=== PATIENT | female | born 1970 | race Caucasian/White ===

== ENCOUNTER 2016-10-07 10:01 | Emergency (ER) | payer MEDICARE ==
[2016-10-07] MEDS ORDERED: SODIUM CHLORIDE 0.9% 1,000 ML IV STA ×3 (13:12→14:54)
[2016-10-07] MEDS ORDERED: ONDANSETRON 4 MG/2 ML VIAL IVP STA ×2 (13:12→14:54)
[2016-10-07] MEDS ORDERED: HYDROmorphone 1 MG/ML 1 ML SYRINGE IVP STA (13:12)
--- NOTE | 2016-10-07 13:24 | ED ---
General Adult HPI - General Chief complaint: Abdominal Pain Stated complaint: ABDOMINAL PAIN Time Seen by Provider: 10/07/16 13:07 Source: patient, RN notes reviewed Mode of arrival: ambulatory Limitations: physical limitation - History of Present Illness Initial comments: Patient is a 45-year-old female who presents emergency room today with a chief complaint of increased abdominal pain over the last 5 days. Does admit to symptoms of nausea vomiting. She states that she did have some diarrhea today. Denies any signs of blood. Does admit that the pain reminds her of the pain returns that she's had once in the past. Patient states was due to a cyst. Describes abdominal pain as "burning". Currently rates it a 03/02. She currently denies any other complaints or symptoms at this time. - Related Data Home Medications Medication Instructions Recorded Confirmed Cholecalciferol [Vitamin D3] 2,000 unit PO DAILY 10/07/16 10/07/16 Previous Rx's Medication Instructions Recorded Dicyclomine [Bentyl] 20 mg PO QID #20 tablet 10/07/16 Ondansetron Odt [Zofran ODT] 4 mg PO Q8HR PRN #20 tab 10/07/16 Allergies Allergy/AdvReac Type Severity Reaction Status Date / Time levofloxacin [From Levaquin] Allergy Unknown Verified 10/07/16 13:06 progesterone Allergy loss of Verified 10/07/16 13:06 vision sulfamethoxazole Allergy Rash/Hives Verified 10/07/16 13:06 [From Bactrim] trimethoprim [From Bactrim] Allergy Rash/Hives Verified 10/07/16 13:06 lorazepam [From Ativan] AdvReac Hallucinati Verified 10/07/16 13:06 ons Review of Systems ROS Statement: Those systems with pertinent positive or pertinent negative responses have been documented in the HPI. ROS Other: All systems not noted in ROS Statement are negative. 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, liver disease, peripheral neuropathy, blindness, optic nerve neuropathy History of Any Multi-Drug Resistant Organisms: None Reported Past Surgical History: Tubal Ligation Additional Past Surgical History / Comment(s): pancreatitis, h pylori, optic nerve neuropathy, blindness Past Anesthesia/Blood Transfusion Reactions: Motion Sickness Past Psychological History: No Psychological Hx Reported Smoking Status: Former smoker Past Alcohol Use History: Occasional Past Drug Use History: None Reported - Past Family History Mother Family Medical History: Hypertension General Exam - General Exam Comments Initial Comments: General: The patient is awake and alert, in no distress, and does not appear acutely ill. Eye: Pupils are equal, round and reactive to light, extra-ocular movements are intact. No nystagmus. There is normal conjunctiva bilaterally. No signs of icterus. Ears, nose, mouth and throat: There are moist mucous membranes and no oral lesions. Neck: The neck is supple, there is no tenderness or JVD. Cardiovascular: There is a regular rate and rhythm. No murmur, rub or gallop is appreciated. Respiratory: Lungs are clear to auscultation, respirations are non-labored, breath sounds are equal. No wheezes, stridor, rales, or rhonchi. Gastrointestinal: Normal appearance of the abdomen. Normal bowel sounds. Abdomen soft on palpation. Patient does have tenderness mildly throughout the abdomen. No rebound tenderness. No guarding. No CVA tenderness. Musculoskeletal: Normal ROM, no tenderness. Strength 5/5. Sensation intact. Pulses equal bilaterally 2+. Neurological: A&O x 3. CN II-XII intact, There are no obvious motor or sensory deficits. Coordination appears grossly intact. Speech is normal. Skin: Skin is warm and dry and no rashes or lesions are noted. Psychiatric: Cooperative, appropriate mood & affect, normal judgment. Limitations: physical limitation Course Vital Signs 10/07/16 10/07/16 10:11 15:04 Temperature 99.0 F Pulse Rate 100 78 Respiratory 20 16 Rate Blood Pressure 154/90 131/70 O2 Sat by Pulse 99 100 Oximetry Medical Decision Making - Medical Decision Making 45-year-old female presents to emergency room for nausea, vomiting, diarrhea 5 days. She doesn't have initial mild diffuse abdominal pain throughout abdomen. Patient reexamined at this time shows no sign of distress. Feeling better after medications. Patient's CT of the abdomen and pelvis negative for any acute abnormalities. Patient's labs reviewed and elevated white count. Negative lactic acid. Patient will be discharged home advised follow-up the family doctor in the next 2 days. She is advised return to emergency room symptoms increase worsen. She'll be continued on Zofran and Bentyl at home. Advised return for any other concerns. She states understanding and is in agreement. - Lab Data Result diagrams: 10/07/16 13:10 10/07/16 13:10 Lab Results 10/07/16 10/07/16 10/07/16 Range/Units 13:00 13:00 13:10 WBC (3.8-10.6) k/uL RBC (3.80-5.40) m/uL Hgb (11.4-16.0) gm/dL Hct (34.0-46.0) % MCV (80.0-100.0) fL MCH (25.0-35.0) pg MCHC (31.0-37.0) g/dL RDW (11.5-15.5) % Plt Count (150-450) k/uL Neutrophils % % Lymphocytes % % Monocytes % % Eosinophils % % Basophils % % Neutrophils # (1.3-7.7) k/uL Lymphocytes # (1.0-4.8) k/uL Monocytes # (0-1.0) k/uL Eosinophils # (0-0.7) k/uL Basophils # (0-0.2) k/uL Sodium 143 (137-145) mmol/L Potassium 3.6 (3.5-5.1) mmol/L Chloride 103 (98-107) mmol/L Carbon Dioxide 23 (22-30) mmol/L Anion Gap 17 mmol/L BUN 12 (7-17) mg/dL Creatinine 0.60 (0.52-1.04) mg/dL Est GFR (MDRD) Af Amer >60 (>60 ml/min/1.73 sqM) Est GFR (MDRD) Non-Af >60 (>60 ml/min/1.73 sqM) Glucose 107 H (74-99) mg/dL Plasma Lactic Acid Frank (0.7-2.0) mmol/L Calcium 10.0 (8.4-10.2) mg/dL Total Bilirubin 0.9 (0.2-1.3) mg/dL AST 68 H (14-36) U/L ALT 72 H (9-52) U/L Alkaline Phosphatase 53 (38-126) U/L Total Protein 8.1 (6.3-8.2) g/dL Albumin 4.9 (3.5-5.0) g/dL Amylase 72 (30-110) U/L Lipase 40 (23-300) U/L Urine Color Yellow Urine Appearance Cloudy H (Clear) Urine pH 5.5 (5.0-8.0) Ur Specific [place] 1.025 (1.001-1.035) Urine Protein Trace H (Negative) Urine Glucose (UA) Negative (Negative) Urine Ketones 3+ H (Negative) Urine Blood Negative (Negative) Urine Nitrite Negative (Negative) Urine Bilirubin 1+ H (Negative) Urine Urobilinogen 2.0 (<2.0) mg/dL Ur Leukocyte Esterase Negative (Negative) Urine WBC 1 (0-5) /hpf Ur Squamous Epith Cells 5 H (0-4) /hpf Amorphous Sediment Rare H (None) /hpf Urine Mucus Many H (None) /hpf Urine HCG, Qual Not Detected (Not Detectd) 10/07/16 10/07/16 Range/Units 13:10 13:30 WBC 10.5 (3.8-10.6) k/uL RBC 4.55 (3.80-5.40) m/uL Hgb 13.7 (11.4-16.0) gm/dL Hct 40.9 (34.0-46.0) % MCV 89.8 (80.0-100.0) fL MCH 30.2 (25.0-35.0) pg MCHC 33.6 (31.0-37.0) g/dL RDW 15.1 (11.5-15.5) % Plt Count 199 (150-450) k/uL Neutrophils % 80 % Lymphocytes % 14 % Monocytes % 4 % Eosinophils % 1 % Basophils % 0 % Neutrophils # 8.4 H (1.3-7.7) k/uL Lymphocytes # 1.5 (1.0-4.8) k/uL Monocytes # 0.4 (0-1.0) k/uL Eosinophils # 0.1 (0-0.7) k/uL Basophils # 0.0 (0-0.2) k/uL Sodium (137-145) mmol/L Potassium (3.5-5.1) mmol/L Chloride (98-107) mmol/L Carbon Dioxide (22-30) mmol/L Anion Gap mmol/L BUN (7-17) mg/dL Creatinine (0.52-1.04) mg/dL Est GFR (MDRD) Af Amer (>60 ml/min/1.73 sqM) Est GFR (MDRD) Non-Af (>60 ml/min/1.73 sqM) Glucose (74-99) mg/dL Plasma Lactic Acid Frank 1.1 (0.7-2.0) mmol/L Calcium (8.4-10.2) mg/dL Total Bilirubin (0.2-1.3) mg/dL AST (14-36) U/L ALT (9-52) U/L Alkaline Phosphatase (38-126) U/L Total Protein (6.3-8.2) g/dL Albumin (3.5-5.0) g/dL Amylase (30-110) U/L Lipase (23-300) U/L Urine Color Urine Appearance (Clear) Urine pH (5.0-8.0) Ur Specific [place] (1.001-1.035) Urine Protein (Negative) Urine Glucose (UA) (Negative) Urine Ketones (Negative) Urine Blood (Negative) Urine Nitrite (Negative) Urine Bilirubin (Negative) Urine Urobilinogen (<2.0) mg/dL Ur Leukocyte Esterase (Negative) Urine WBC (0-5) /hpf Ur Squamous Epith Cells (0-4) /hpf Amorphous Sediment (None) /hpf Urine Mucus (None) /hpf Urine HCG, Qual (Not Detectd) Disposition Clinical Impression: Nausea vomiting and diarrhea Disposition: HOME SELF-CARE Condition: Good Instructions: Abdominal Pain (ED) Additional Instructions: Please use medication as discussed. Please follow-up with family doctor in the next 2 days of symptoms have not improved. Please return to emergency room if the symptoms increase or worsen or for any other concerns. Prescriptions: Dicyclomine [Bentyl] 20 mg PO QID #20 tablet Ondansetron Odt [Zofran ODT] 4 mg PO Q8HR PRN #20 tab PRN Reason: Nausea Referrals: David Collins DO [Primary Care Provider] - 1-2 days Time of Disposition: 15:24
[2016-10-07 13:26] LABS: Basophils % (A) 0 %; CH 29.6; CHCM 33.1; Eosinophils # (A) 0.1 k/uL (0-0.7); Eosinophils % (A) 1 %; HCT 40.9 % (34.0-46.0); HGB 13.7 gm/dL (11.4-16.0); Luc # (Auto) 0.19; Luc % (Auto) 2; Lymphocytes # (A) 1.5 k/uL (1.0-4.8); Lymphocytes % (A) 14 %; MCH 30.2 pg (25.0-35.0); MCHC 33.6 g/dL (31.0-37.0); MCV 89.8 fL (80.0-100.0); Mean Platelet Volume 7.5; Monocytes # (A) 0.4 k/uL (0-1.0); Monocytes % (A) 4 %; Neutrophils # (A) 8.4 k/uL (1.3-7.7); Neutrophils % (A) 80 %; RBC 4.55 m/uL (3.80-5.40); RDW 15.1 % (11.5-15.5); WBC 10.5 k/uL (3.8-10.6); WBC (Perox) 10.94
[2016-10-07 13:32] LABS: Amorphous Sediment,Urine Rare /hpf; Appearance,Urine Cloudy (Clear); Bilirubin,Urine 1+ (Negative); Glucose,Urine (UA) Negative (Negative); Ketones,Urine 3+ (Negative); Leukocyte Esterase,Urine Negative (Negative); Mucus,Urine Many /hpf; Nitrite,Urine Negative (Negative); PH, Urine 5.5 (5.0-8.0); Particle Count 17880; Protein,Urine Trace (Negative); Specific Gravity,Urine 1.025 (1.001-1.035); Squamous Epithelial Cell,Urine 5 /hpf (0-4); UA Billing (MACRO vs. MICRO) MICRO; WBC,Urine 1 /hpf (0-5)
[2016-10-07 13:43] LABS: ALT 72 U/L (9-52); AST 68 U/L (14-36); Alkaline Phosphatase 53 U/L (38-126); Amylase 72 U/L (30-110); Anion Gap 17 mmol/L; Blood Urea Nitrogen 12 mg/dL (7-17); Carbon Dioxide 23 mmol/L (22-30); Chloride 103 mmol/L (98-107); Glucose 107 mg/dL (74-99); Non-African American GFR(MDRD) >60 (>60 ml/min/1.73 sqM); Potassium 3.6 mmol/L (3.5-5.1); Sodium 143 mmol/L (137-145); Total Bilirubin 0.9 mg/dL (0.2-1.3); Total Protein 8.1 g/dL (6.3-8.2)
--- NOTE | 2016-10-07 13:49 | XR ---
EXAMINATION TYPE: XR KUB DATE OF EXAM: 10/07/2016 1:45 PM COMPARISON: NONE HISTORY: 03/15/2012 TECHNIQUE: One view abdominal series FINDINGS: The osseous structures are intact. The bowel gas pattern is nonspecific. Lung bases are clear. Calc ification pelvis is nonspecific but likely vascular. Stable from previous exam. Hypertrophic change o f the hips seen with femoral acetabular impingement. IMPRESSION: 1. Nonspecific abdomen.
[2016-10-07] MEDS ORDERED: RX INFO: IV CONTRAST WAS GIVEN 1 EACH MISC MISCELLANE PRN (13:56)
--- NOTE | 2016-10-07 14:47 | CT ---
EXAMINATION TYPE: CT abdomen pelvis w con DATE OF EXAM: 10/07/2016 2:34 PM COMPARISON: 08/28/2013 INDICATION: pain with vomiting DLP: 447.2 mGycm, Automated exposure control for dose reduction was used. CONTRAST: 100 mL of Omnipaque 300. Study performed with Oral Contrast TECHNIQUE: Axial images were obtained from above the diaphragm to the pubic rami in the axial plane a t 5 mm thick sections. Reconstructed images are reviewed on the computer in the coronal plane. FINDINGS: Limited CT sections are obtained the lung bases. The lung bases are clear. CT ABDOMEN: Liver: Normal Spleen: Normal Pancreas: Normal Adrenal glands: The adrenal glands are normal. Gallbladder: Normal Kidneys: No masses are evident. No hydronephrosis is present. There is a 0.5 cm right renal cortica l cyst. Delayed images were obtained through the kidneys, which remain unremarkable. Aorta: Normal Inferior vena cava: Normal. CT PELVIS: Loops of bowel within the abdomen and pelvis are normal. Study is without oral contrast limiting bowel evaluation. No dilated loops of bowel are evident. Stomach appears unremarkable. Appendix: Not visualized Urinary bladder: Decompressed with limited evaluation Genitourinary structures: Uterus appears normal. Adnexal regions appear within normal limits. A 1.1 c m cyst left ovary. Osseous structures: No suspicious lytic or sclerotic lesions. IMPRESSIONS: 1. Small right cortical renal cyst. 2. Unremarkable bowel
[2016-10-07] MEDS ORDERED: DICYCLOMINE 10 MG/ML 2 ML AMP IM STA (14:54)
[2016-10-07 15:05] VITALS: BP 131/70; RESP 16
[2016-10-07 15:36] VITALS: PULSE 70; TEMP 97.6
== END 2016-10-07 15:46 | disposition home or self-care (01) ==
LOC: EC 10:01
DX: R11.2 Nausea with vomiting, unspecified (principal); R19.7 Diarrhea, unspecified; Z88.1 Allergy status to other antibiotic agents; Z88.2 Allergy status to sulfonamides; Z88.8 Allergy status to other drugs, medicaments and biological substances; Z87.891 Personal history of nicotine dependence; Z79.899 Other long term (current) drug therapy
CPT/HCPCS: 99284; 96372; 96374; 96375; 96376; 96361 ×3; 36415; 80053; 82150; 83605; 83690; 85025; 81001; 81025; 74000; 74177; J0500; J2405; J1170; Q9967

== ENCOUNTER → 2017-04-09 | Outpatient (CLI) | payer MEDICARE ==
--- NOTE | 2017-04-09 15:01 | US ---
EXAMINATION TYPE: US pelvic complete DATE OF EXAM: 04/09/2017 COMPARISON: CT 2017 CLINICAL HISTORY: Pelvic PainR10.2. midline pelvic pain radiating laterally; TECHNIQUE: Transvaginal (TV) as patient chose TV US since bladder not prepped Date of LMP: 04/05/2017 EXAM MEASUREMENTS: Uterus: 7.6 x 5.2 x 4.0 cm Endometrial Stripe: 0.9 cm Right Ovary: 1.5 x 1.3 x 1.0 cm Left Ovary: 2.1 x 2.4 x 1.6 cm 1. Uterus: Retroverted; Multiple Nabothian Cysts in CX with largest = 0.9 x 0.5 x 0.9cm; heterogeneo us appearance to myometrium with hypoechoic, oval area (possible fibroid) noted mid myometrium near p eriphery and size = 1.5 x 0.9 x 0.9cm. 2. Endometrium: thickness may be wnl for Day 5 menstrual phase 3. Right Ovary: simple cyst is noted = 0.8 x 0.8 x 0.6cm 4. Left Ovary: simple cyst is noted = 1.2 x 1.2 x 0.8cm. Spectral, color and waveform doppler imaging shows good arterial and venous flow within the ovaries ; there is no evidence for ovarian torsion. 5. Bilateral Adnexa: wnl 6. Posterior cul-de-sac: wnl IMPRESSION: 1. Uterus is heterogeneous which is nonspecific. Occasionally BE seen with diffuse fibroid change. Th ere is a 1.5 cm hypoechoic nodule mid myometrium which likely represents a discrete fibroid. MRI coul d BE obtained as clinically warranted. 2. Simple cyst or dominant follicle bilateral ovary.
--- NOTE | 2017-04-12 08:36 | MM ---
Reason for exam: screening (asymptomatic). Last mammogram was performed 4 years and 2 months ago. Physical Findings: A clinical breast exam by your physician is recommended on an annual basis and results should be correlated with mammographic findings. MG Screening Mammo w CAD Bilateral CC and MLO view(s) were taken. Prior study comparison: January 31, 2013, bilateral digital screening mammo w/CAD. The breast tissue is extremely dense which could obscure a lesion on mammography. There is chronic nodularity bilaterally. No significant changes when compared with prior studies. ASSESSMENT: Benign, BI-RAD 2 RECOMMENDATION: Routine screening mammogram of both breasts in 1 year.
== END | disposition home or self-care (01) ==
LOC: RADMAMWWP 13:44
PROVIDERS: ATTEND Obstetrics & Gynecology
DX: Z12.31 Encounter for screening mammogram for malignant neoplasm of breast (principal); N83.201 Unspecified ovarian cyst, right side; N83.202 Unspecified ovarian cyst, left side
CPT/HCPCS: 76830; G0202

== ENCOUNTER 2018-07-02 10:02 | Emergency (ER) | payer MEDICARE ==
[2018-07-02 10:12] VITALS: RESP 18; TEMP 98.4
[2018-07-02] MEDS ORDERED: SODIUM CHLORIDE 0.9% 1,000 ML IV ONE (11:04)
[2018-07-02] MEDS ORDERED: MORPHINE SULFATE 4 MG/ML SYRINGE IVP STA (11:04)
[2018-07-02] MEDS ORDERED: KETOROLAC 30 MG/ML 1 ML VIAL IVP STA (11:04)
[2018-07-02] MEDS ORDERED: SODIUM CHLORIDE 0.9% 1,000 ML IV SCH (11:15)
--- NOTE | 2018-07-02 11:46 | ED ---
Abdominal Pain HPI - General Chief Complaint: Abdominal Pain Stated Complaint: Flank pain Time Seen by Provider: 07/02/18 10:14 Source: patient, RN notes reviewed, old records reviewed Mode of arrival: ambulatory Limitations: no limitations - History of Present Illness Initial Comments: 47-year-old female presents raise arthritic complaints of right-sided abdominal pain flank pain and bloating for 1 week. Patient states that she has numbness and tingling rating down her back to mid abdomen. She denies any falls or trauma. No vomiting. She does feel nauseated. Patient states that she does have pain radiates from her back down her legs. Patient states that she seems to be numb and tingly in these areas. Patient denies any saddle anesthesias. - Related Data Home Medications Medication Instructions Recorded Confirmed Ibuprofen [Motrin Ib] 400 mg PO Q6HR PRN 07/02/18 07/02/18 Previous Rx's Medication Instructions Recorded Cyclobenzaprine [Flexeril] 10 mg PO TID #12 tab 07/02/18 Ondansetron Odt [Zofran Odt] 4 mg PO Q8HR PRN #12 tab 07/02/18 Allergies Allergy/AdvReac Type Severity Reaction Status Date / Time levofloxacin [From Levaquin] Allergy Unknown Verified 07/02/18 10:53 progesterone Allergy loss of Verified 07/02/18 10:53 vision sulfamethoxazole Allergy Rash/Hives Verified 07/02/18 10:53 [From Bactrim] trimethoprim [From Bactrim] Allergy Rash/Hives Verified 07/02/18 10:53 lorazepam [From Ativan] AdvReac Hallucinati Verified 07/02/18 10:53 ons Review of Systems ROS Statement: Those systems with pertinent positive or pertinent negative responses have been documented in the HPI. ROS Other: All systems not noted in ROS Statement are negative. 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, liver disease, peripheral neuropathy, blindness, optic nerve neuropathy History of Any Multi-Drug Resistant Organisms: None Reported Past Surgical History: Tubal Ligation Additional Past Surgical History / Comment(s): pancreatitis, h pylori, optic nerve neuropathy, blindness Past Anesthesia/Blood Transfusion Reactions: Motion Sickness Past Psychological History: No Psychological Hx Reported Smoking Status: Former smoker Past Alcohol Use History: Occasional Past Drug Use History: None Reported - Past Family History Mother Family Medical History: Hypertension General Exam - General Exam Comments Initial Comments: Pleasant 47-year-old female. Alert and oriented 3. Patient appears in no significant distress. Limitations: no limitations General appearance: alert, in no apparent distress Head exam: Present: atraumatic, normocephalic, normal inspection Eye exam: Present: normal appearance, PERRL, EOMI. Absent: scleral icterus, conjunctival injection, periorbital swelling ENT exam: Present: normal exam, mucous membranes moist Neck exam: Present: normal inspection. Absent: tenderness, meningismus, lymphadenopathy Respiratory exam: Present: normal lung sounds bilaterally. Absent: respiratory distress, wheezes, rales, rhonchi, stridor Cardiovascular Exam: Present: regular rate, normal rhythm, normal heart sounds. Absent: systolic murmur, diastolic murmur, rubs, gallop, clicks GI/Abdominal exam: Present: soft, normal bowel sounds. Absent: distended, tenderness, guarding, rebound, rigid Extremities exam: Present: normal inspection, full ROM, normal capillary refill. Absent: tenderness, pedal edema, joint swelling, calf tenderness Back exam: Present: normal inspection, tenderness (Patient has tenderness to palpation of the lumbar spine.) Neurological exam: Present: alert, oriented X3, CN II-XII intact Psychiatric exam: Present: normal affect, normal mood Skin exam: Present: warm, dry, intact, normal color. Absent: rash Course Vital Signs 07/02/18 07/02/18 10:06 12:42 Temperature 98.4 F Pulse Rate 85 65 Respiratory 18 18 Rate Blood Pressure 136/90 134/89 O2 Sat by Pulse 98 100 Oximetry - Reevaluation(s) Reevaluation #1: 07/02/18 13:33 U pelvic exam on Patient she states that she's had follow-up with Dr. Gilman and prefers for Dr. Gilman to complete the pelvic exam. Medical Decision Making - Medical Decision Making 39-year-old female present to return today with complaints of abdominal fullness distention. She complains also of some back pain. Numbness and tingling A down her leg and across her abdomen. She has history of pancreatitis. She is a social drinker. No chronic alcohol abuse. She has no falls or trauma. Bowel sounds are normal. She did have some tenderness over the right lower quadrant. Abdomen seems somewhat full. Bowel sounds were normal. Initially concerned for any kind of ovarian mass leading to abdominal distention or ascites. Patient had lab work obtained he was given pain medication. Patient's lab work was unremarkable. There was some ketones within her urine from vomiting. Patient was given IV morphine. Computed tomography scan completed. Lumbar spine shows no significant abnormalities. I do believe the majority of patient's pain down her back in the paresthesias she is feeling is likely related to a pinched nerve. Patient's abdomen and pelvis CT did show some cervical thickening which could correlate to physical exam findings concerning for neoplasm. I did advise the Patient that she can't close follow-up with her [employer] Dr. Killian for further testing. Did offer pelvic exam she states she preferred to have Dr. Gavin for the full Pap smear. Patient does also have an ovarian cyst. Discussed close follow-up with PCP as well. Discharged with pulse relaxers and anti-inflammatory medication for the back. Discussed close return parameters. - Lab Data Result diagrams: 07/02/18 11:24 07/02/18 11:24 Lab Results 07/02/18 07/02/18 07/02/18 Range/Units 11:24 11:24 11:24 WBC 6.8 (3.8-10.6) k/uL RBC 4.11 (3.80-5.40) m/uL Hgb 12.4 (11.4-16.0) gm/dL Hct 38.9 (34.0-46.0) % MCV 94.8 (80.0-100.0) fL MCH 30.1 (25.0-35.0) pg MCHC 31.8 (31.0-37.0) g/dL RDW 14.8 (11.5-15.5) % Plt Count 233 (150-450) k/uL Neutrophils % 66 % Lymphocytes % 22 % Monocytes % 8 % Eosinophils % 2 % Basophils % 0 % Neutrophils # 4.5 (1.3-7.7) k/uL Lymphocytes # 1.5 (1.0-4.8) k/uL Monocytes # 0.6 (0-1.0) k/uL Eosinophils # 0.2 (0-0.7) k/uL Basophils # 0.0 (0-0.2) k/uL Sodium 139 (137-145) mmol/L Potassium 4.3 (3.5-5.1) mmol/L Chloride 105 (98-107) mmol/L Carbon Dioxide 25 (22-30) mmol/L Anion Gap 9 mmol/L BUN 15 (7-17) mg/dL Creatinine 0.53 (0.52-1.04) mg/dL Est GFR (CKD-EPI)AfAm >90 (>60 ml/min/1.73 sqM) Est GFR (CKD-EPI)NonAf >90 (>60 ml/min/1.73 sqM) Glucose 92 (74-99) mg/dL Calcium 9.2 (8.4-10.2) mg/dL Total Bilirubin 1.1 (0.2-1.3) mg/dL AST 24 (14-36) U/L ALT 29 (9-52) U/L Alkaline Phosphatase 43 (38-126) U/L Total Protein 7.0 (6.3-8.2) g/dL Albumin 4.1 (3.5-5.0) g/dL Amylase 59 (30-110) U/L Lipase 58 (23-300) U/L Urine Color Yellow Urine Appearance Clear (Clear) Urine pH 5.0 (5.0-8.0) Ur Specific [place] 1.024 (1.001-1.035) Urine Protein Negative (Negative) Urine Glucose (UA) Negative (Negative) Urine Ketones 2+ H (Negative) Urine Blood Negative (Negative) Urine Nitrite Negative (Negative) Urine Bilirubin Negative (Negative) Urine Urobilinogen <2.0 (<2.0) mg/dL Ur Leukocyte Esterase Negative (Negative) 07/02/18 13:31 EKG shows normal sinus rhythm possible left atrial enlargement. Borderline EKG. Ventricular rate of 67 bpm. Was 160 ms. QRS ration 86. QT QTc is 420/452 ms. - Radiology Data Radiology results: report reviewed Patient's motion within the mid and lower abdomen severely limiting the exam. Heterogeneous cervix that could be correlated with physical exam to exclude cervical neoplasm. Left ovarian cyst is seen measuring 3.1 cm. Sigmoid diverticulosis without evidence of dye acute diverticulitis. Appendix is not definitively seen however no real right lower quadrant fat stranding or changes are noted. There is evidence of hepatic steatosis. Disposition Clinical Impression: Back pain, Cervix abnormality, Left ovarian cyst Disposition: HOME SELF-CARE Condition: Good Instructions (If sedation given, give patient instructions): Cervical Cancer ( [place]) Additional Instructions: Patient has a close follow-up with primary care physician and Dr. Gilman. Patient should return to the emergency department if any alarming signs or symptoms occur. Prescriptions: Cyclobenzaprine [Flexeril] 10 mg PO TID #12 tab Ondansetron Odt [Zofran Odt] 4 mg PO Q8HR PRN #12 tab PRN Reason: Nausea Is patient prescribed a controlled substance at d/c from ED?: No Referrals: David Collins DO [Primary Care Provider] - 1-2 days Time of Disposition: 13:32
[2018-07-02 11:53] LABS: Appearance,Urine Clear (Clear); Basophils % (A) 0 %; Bilirubin,Urine Negative (Negative); Blood,Urine Negative (Negative); Color,Urine Yellow; Eosinophils # (A) 0.2 k/uL (0-0.7); Eosinophils % (A) 2 %; Glucose,Urine (UA) Negative (Negative); HCT 38.9 % (34.0-46.0); HGB 12.4 gm/dL (11.4-16.0); Ketones,Urine 2+ (Negative); Leukocyte Esterase,Urine Negative (Negative); Lymphocytes # (A) 1.5 k/uL (1.0-4.8); Lymphocytes % (A) 22 %; MCH 30.1 pg (25.0-35.0); MCHC 31.8 g/dL (31.0-37.0); MCV 94.8 fL (80.0-100.0); Mean Platelet Volume 6.7; Monocytes # (A) 0.6 k/uL (0-1.0); Monocytes % (A) 8 %; Neutrophils # (A) 4.5 k/uL (1.3-7.7); Neutrophils % (A) 66 %; Nitrite,Urine Negative (Negative); Platelet Count 233 k/uL (150-450); Protein,Urine Negative (Negative); RBC 4.11 m/uL (3.80-5.40); RDW 14.8 % (11.5-15.5); Specific Gravity,Urine 1.024 (1.001-1.035); Urobilinogen,Urine <2.0 mg/dL (<2.0); WBC 6.8 k/uL (3.8-10.6)
[2018-07-02 11:59] LABS: ALT 29 U/L (9-52); AST 24 U/L (14-36); Albumin 4.1 g/dL (3.5-5.0); Alkaline Phosphatase 43 U/L (38-126); Amylase 59 U/L (30-110); Anion Gap 9 mmol/L; Blood Urea Nitrogen 15 mg/dL (7-17); Calcium 9.2 mg/dL (8.4-10.2); Carbon Dioxide 25 mmol/L (22-30); Chloride 105 mmol/L (98-107); Glucose 92 mg/dL (74-99); Lipase 58 U/L (23-300); Potassium 4.3 mmol/L (3.5-5.1); Sodium 139 mmol/L (137-145); Total Bilirubin 1.1 mg/dL (0.2-1.3)
--- NOTE | 2018-07-02 12:45 | CT ---
EXAMINATION TYPE: CT abdomen pelvis w con DATE OF EXAM: 07/02/2018 HISTORY: Bloating, Rt sided pain CT DLP: 566.4mGycm Automated Exposure Control for Dose Reduction was Utilized. CONTRAST: CT scan of the abdomen and pelvis is performed with IV Contrast, patient injected with 100 mL of Isov ue 300. COMPARISON: 10/07/2016 FINDINGS: There is patient motion within the mid and lower abdomen severely limiting the exam. LUNG BASES: Minimal bibasilar subsegmental dependent atelectasis is noted. LIVER/GB: Hepatic parenchyma is diffusely hypoattenuated in comparison to that of the spleen, most co mmonly seen in hepatic steatosis. This finding limits evaluation for hepatic masses. More focal fatty infiltration is seen a geographic distribution near the falciform ligament. No gross evidence of hep atic mass is seen. No intrahepatic biliary ductal dilatation. No cholelithiasis. PANCREAS: No significant abnormality is seen. SPLEEN: No significant abnormality is seen. Splenule is noted adjacent to the kiana spleen. ADRENALS: No significant abnormality is seen. KIDNEYS: 2 small to accurately characterize subcentimeter right renal lesion is seen of the upper berry e anteriorly. BOWEL: No significant abnormality is seen. UTERUS/ADNEXA: The cervix appears enlarged and heterogenous. Left ovarian 3 cm cyst is noted. LYMPH NODES: No greater than 1cm abdominal or pelvic lymph nodes are appreciated. OSSEOUS STRUCTURES: Punctate probable bone island is seen of the L4 vertebral body, unchanged from th e prior exam. IMPRESSION: 1. PATIENT MOTION WITHIN THE MID AND LOWER ABDOMEN SEVERELY LIMITING THE EXAM. 2. HETEROGENOUS CERVIX THAT SHOULD BE CORRELATED WITH PHYSICAL EXAM TO EXCLUDE CERVICAL NEOPLASM. LEF T OVARIAN CYST IS SEEN MEASURING 3.1 CM. 2. SIGMOID DIVERTICULOSIS WITHOUT EVIDENCE OF ACUTE DIVERTICULITIS. 3. APPENDIX IS NOT DEFINITIVELY SEEN, HOWEVER NO RIGHT LOWER QUADRANT FAT STRANDING CHANGES ARE SEEN. WHAT IS THOUGHT TO REPRESENT THE APPENDIX IS WITHIN NORMAL LIMITS OF SIZE. 4. HEPATIC STEATOSIS.
[2018-07-02 14:14] VITALS: BP 129/97; PULSE 75
== END 2018-07-02 14:14 | disposition home or self-care (01) ==
LOC: EC 10:02
DX: N83.202 Unspecified ovarian cyst, left side (principal); N88.8 Other specified noninflammatory disorders of cervix uteri; R20.0 Anesthesia of skin; R20.2 Paresthesia of skin; Z86.73 Personal history of transient ischemic attack (TIA), and cerebral infarction without residual deficits; Z98.51 Tubal ligation status; Z87.19 Personal history of other diseases of the digestive system; Z87.891 Personal history of nicotine dependence; Z88.1 Allergy status to other antibiotic agents; Z79.890 Hormone replacement therapy; Z88.2 Allergy status to sulfonamides; Z88.8 Allergy status to other drugs, medicaments and biological substances
CPT/HCPCS: 99285; 96374; 96375; 96361 ×3; 36415; 93005; 80053; 82150; 83690; 85025; 81003; 74177; J2270; J1885; Q9967

== ENCOUNTER 2018-07-03 15:42 | Emergency (ER) | payer MEDICARE ==
[2018-07-03 15:48] VITALS: TEMP 98.3
[2018-07-03] MEDS ORDERED: SODIUM CHLORIDE 0.9% 1,000 ML IV STA (16:16)
[2018-07-03] MEDS ORDERED: diphenhydrAMINE 50 MG/ML 1 ML VIAL IVP STA (16:16)
[2018-07-03] MEDS ORDERED: FAMOTIDINE 20 MG/2 ML VIAL IV STA (16:16)
[2018-07-03] MEDS ORDERED: methylPREDNISolone SOD SUCCI 125 MG/2 ML VIAL IV STA (16:16)
[2018-07-03 16:17] VITALS: RESP 20
--- NOTE | 2018-07-03 16:21 | ED ---
Allergic Reaction HPI - General Chief complaint: Neuro Symptoms/Deficit Stated complaint: allergic reaction Time Seen by Provider: 07/03/18 16:02 Source: patient Mode of arrival: ambulatory Limitations: no limitations - History of Present Illness Initial Comments: Patient is a 47-year-old female presenting for ALLERGIC reaction type symptoms. She was seen here yesterday and given a prescription for muscle relaxers for back pain as well as abdominal discomfort. She took the medications around 1 AM and around 11 AM, she started having some itchy throat, tongue swelling, upper lip swelling states that she was having some numbness and tingling around her mouth. She denied any wheezing or shortness of breath and decided to come in after taking some Benadryl with only minimal relief. She denies any lower extremity weakness, numbness and tingling or arm weakness or paresthesias. - Related Data Home Medications Medication Instructions Recorded Confirmed Ibuprofen [Motrin Ib] 400 mg PO Q6HR PRN 07/02/18 07/03/18 Previous Rx's Medication Instructions Recorded EPINEPHrine [Epipen 2-Eduardo] 0.3 mg IM ONCE PRN #1 pack 07/03/18 Famotidine [Pepcid] 20 mg PO BID 5 Days #10 tablet 07/03/18 predniSONE 50 mg PO DAILY #4 tablet 07/03/18 Allergies Allergy/AdvReac Type Severity Reaction Status Date / Time cyclobenzaprine Allergy Anaphylaxis Verified 07/03/18 16:04 levofloxacin [From Levaquin] Allergy Unknown Verified 07/03/18 16:04 progesterone Allergy loss of Verified 07/03/18 16:04 vision sulfamethoxazole Allergy Rash/Hives Verified 07/03/18 16:04 [From Bactrim] trimethoprim [From Bactrim] Allergy Rash/Hives Verified 07/03/18 16:04 lorazepam [From Ativan] AdvReac Hallucinati Verified 07/03/18 16:04 ons Review of Systems ROS Statement: Those systems with pertinent positive or pertinent negative responses have been documented in the HPI. Constitutional: Negative for chills, fatigue and fever. HENT: Negative for congestion. Positive for upper lip swelling, tongue swelling and perioral numbness and tingling Respiratory: Negative for chest tightness, shortness of breath and wheezing. Negative for cough Cardiovascular: Negative for chest pain and palpitations. Gastrointestinal: Negative for abdominal pain. Negative for abdominal distention , diarrhea, nausea and vomiting. Genitourinary: Negative for dysuria. Musculoskeletal: Negative for back pain, neck pain and neck stiffness. Skin: Negative for color change. Neurological: Negative for dizziness, speech difficulty, weakness and positive for light-headedness. Psychiatric/Behavioral: Negative for agitation and confusion. Negative for anxiety ROS Other: All systems not noted in ROS Statement are negative. 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, liver disease, peripheral neuropathy, blindness, optic nerve neuropathy History of Any Multi-Drug Resistant Organisms: None Reported Past Surgical History: Tubal Ligation Additional Past Surgical History / Comment(s): pancreatitis, h pylori, optic nerve neuropathy, blindness Past Anesthesia/Blood Transfusion Reactions: Motion Sickness Past Psychological History: No Psychological Hx Reported Smoking Status: Former smoker Past Alcohol Use History: Occasional Past Drug Use History: None Reported - Past Family History Mother Family Medical History: Hypertension General Exam - General Exam Comments Initial Comments: Constitutional: Pt is oriented to person, place, and time. Pt appears well- developed and well-nourished. No distress. Head: Normocephalic and atraumatic. Mouth: Mild swelling of the upper lip. No tongue swelling, no paresthesias in the perioral region. Eyes: EOM are normal. Neck: Normal range of motion. Neck supple. Cardiovascular: Normal rate, regular rhythm, S1 normal, S2 normal and normal heart sounds. Exam reveals no gallop and no friction rub. No murmur heard. Pulmonary/Chest: Effort normal and breath sounds normal. No tachypnea and no bradypnea. No respiratory distress. No wheezes or rales noted. Abdominal: Soft. Bowel sounds are normal. Pt exhibits no shifting dullness, no distension, no pulsatile liver, no fluid wave, no abdominal bruit and no ascites. There is no tenderness. There is no rigidity, no rebound, no guarding, no tenderness at McBurney's point and negative Dailey's sign. Musculoskeletal: Normal range of motion. Neurological: Pt is alert and oriented to person, place, and time. No cranial nerve deficit. No ataxia of lower extremities. Unable to perform finger to nose test of the upper extremities as the patient is legally blind. No neurosensory deficits in any of the extremities. 5 out of 5 muscle strength in all extremities. No drift of the extremities present Skin: Skin is warm and dry. No rash noted. Pt is not diaphoretic. No erythema. No pallor. Psychiatric: Pt has a normal mood and affect. Pt behavior is normal. Thought content normal. Limitations: no limitations Course Vital Signs 07/03/18 07/03/18 07/03/18 15:46 15:56 16:00 Temperature 98.3 F Pulse Rate 93 88 Respiratory 18 20 Rate Blood Pressure 144/93 140/102 O2 Sat by Pulse 97 100 100 Oximetry 07/03/18 07/03/18 07/03/18 16:10 16:20 16:30 Temperature Pulse Rate 79 75 77 Respiratory 20 Rate Blood Pressure 140/102 127/88 127/88 O2 Sat by Pulse 100 Oximetry 07/03/18 07/03/18 07/03/18 16:40 16:50 17:00 Temperature Pulse Rate 75 73 73 Respiratory Rate Blood Pressure 122/85 124/97 124/97 O2 Sat by Pulse 100 100 100 Oximetry 07/03/18 07/03/18 07/03/18 17:10 17:20 17:30 Temperature Pulse Rate 71 66 62 Respiratory Rate Blood Pressure 119/90 127/83 127/83 O2 Sat by Pulse 100 100 100 Oximetry 07/03/18 07/03/18 07/03/18 17:40 17:50 18:00 Temperature Pulse Rate 64 68 64 Respiratory Rate Blood Pressure 122/91 122/86 122/86 O2 Sat by Pulse 100 100 100 Oximetry Medical Decision Making - Medical Decision Making Patient showed no evidence of neurologic dysfunction such as ataxia or lower extremity edema or paresthesias. Based on physical exam, this appears to be clearly secondary to ALLERGIC reaction. Pepcid, Benadryl, steroids were given and symptoms were mildly improved. Patient was given prescription for epinephrine as well as Pepcid and steroids to continue. Patient was advised follow-up with PCP in next 1-2 days and/or return to the emergency department if symptoms worsen. Epinephrine was not given here in the emergency department as patient had no throat closing, trouble swallowing or wheezing. - Lab Data Lab Results 07/03/18 Range/Units 16:05 POC Glucose (mg/dL) 93 (75-99) mg/dL POC Glu Financial Secretary ID Vonda Arriola Disposition Clinical Impression: Allergic reaction Disposition: HOME SELF-CARE Condition: Good Instructions (If sedation given, give patient instructions): Anaphylaxis (ED) Prescriptions: EPINEPHrine [Epipen 2-Eduardo] 0.3 mg IM ONCE PRN #1 pack PRN Reason: Anaphylaxis Famotidine [Pepcid] 20 mg PO BID 5 Days #10 tablet predniSONE 50 mg PO DAILY #4 tablet Is patient prescribed a controlled substance at d/c from ED?: No Referrals: David Collins DO [Primary Care Provider] - 1-2 days Time of Disposition: 17:49
[2018-07-03 16:29] LABS: Glucose,Whole Blood 93 mg/dL (75-99)
[2018-07-03 18:10] VITALS: BP 122/86; PULSE 64
== END 2018-07-03 18:10 | disposition home or self-care (01) ==
LOC: EC 15:42
DX: T78.40XA Allergy, unspecified, initial encounter (principal); R20.2 Paresthesia of skin; Z86.73 Personal history of transient ischemic attack (TIA), and cerebral infarction without residual deficits; Z87.891 Personal history of nicotine dependence; Z88.1 Allergy status to other antibiotic agents; Z88.2 Allergy status to sulfonamides; Z88.8 Allergy status to other drugs, medicaments and biological substances
CPT/HCPCS: 36415; 99283; 96374; 96375 ×2; 96361 ×2; J1200; J2930

== ENCOUNTER → 2018-10-18 | Outpatient (CLI) | payer MEDICARE ==
--- NOTE | 2018-10-18 16:04 | US ---
EXAMINATION TYPE: US pelvis complete transvag DATE OF EXAM: 10/18/2018 COMPARISON: US August 15, 2018, CT July 02, 2018. CLINICAL HISTORY: N83.0 Ovarian cyst. Left ovarian cyst. . TECHNIQUE: Transvaginal (TV) and Transabdominal (TA) . Transabdominal sonographic images of the pel vis were acquired. Transvaginal sonographic images were medically necessary to better assess the fol lowing anatomy: Ovaries Date of LMP: 09/21/2018 EXAM MEASUREMENTS: Uterus: 7.9 x 5.1 x 4.7 cm Endometrial Stripe: 0.31 cm Right Ovary: Not visualized Left Ovary: 2.6 x 1.8 x 1.7 cm 1. Uterus: Anteverted Anechoic areas seen throughout cervix. Hypoechoic area measured anteriorly: 1.7 x 1.3 x 1.3 cm. ?Prominent vessels toward the left side of the uterus. 2. Endometrium: appears wnl 3. Right Ovary: Not visualized 4. Left Ovary: Indistinct anechoic area seen measurin.4 x 1.3 x 1.4 cm. 5. Bilateral Adnexa: appears wnl 6. Posterior cul-de-sac: appears wnl Persistent heterogeneous anteverted uterus. No suspicious thickening of endometrial stripe. Nabothian cysts in the cervix are redemonstrated. Suspect anterior intramural 1.3 cm fibroid image 51. No free fluid in pelvic cul-de-sac. Continued improvement in thin-walled cyst or cystic lesion left ovary now measuring 1.4 cm in size. R ight ovary is not seen with certainty on today's study. IMPRESSION: Diminishing size left ovarian cyst or cystic lesion suggests resolving follicular cyst.
== END ==
LOC: RADUSWWP 14:18
PROVIDERS: ATTEND Obstetrics & Gynecology
DX: N83.02 Follicular cyst of left ovary (principal); N83.9 Noninflammatory disorder of ovary, fallopian tube and broad ligament, unspecified
CPT/HCPCS: 76830; 76856; 86304

== ENCOUNTER 2019-06-04 20:56 | Emergency (ER) | payer MEDICARE, OTHER ==
[2019-06-04 21:10] VITALS: BP 129/89; PULSE 75; RESP 18; TEMP 97.5
[2019-06-04] MEDS ORDERED: SODIUM CHLORIDE 0.9% 1,000 ML IV STA ×2 (21:23→22:08)
[2019-06-04] MEDS ORDERED: ONDANSETRON ODT 8 MG TAB.RAPDIS PO STA (21:23)
[2019-06-04] MEDS ORDERED: MORPHINE SULFATE 2 MG/ML SYRINGE IVP STA (21:23)
[2019-06-04] MEDS ORDERED: ONDANSETRON 4 MG/2 ML VIAL IVP STA (21:41)
[2019-06-04 21:42] LABS: Basophils # (A) 0.1 k/uL (0-0.2); Basophils % (A) 1 %; Eosinophils # (A) 0.1 k/uL (0-0.7); Eosinophils % (A) 2 %; HCT 45.4 % (34.0-46.0); HGB 15.3 gm/dL (11.4-16.0); Lymphocytes # (A) 3.1 k/uL (1.0-4.8); Lymphocytes % (A) 55 %; MCH 33.5 pg (25.0-35.0); MCHC 33.6 g/dL (31.0-37.0); MCV 99.5 fL (80.0-100.0); Mean Platelet Volume 7.7; Monocytes # (A) 0.4 k/uL (0-1.0); Monocytes % (A) 7 %; Neutrophils # (A) 1.8 k/uL (1.3-7.7); Neutrophils % (A) 31 %; Platelet Count 176 k/uL (150-450); RBC 4.56 m/uL (3.80-5.40); RDW 14.7 % (11.5-15.5); WBC 5.6 k/uL (3.8-10.6)
--- NOTE | 2019-06-04 21:50 | ED ---
General Adult HPI - General Chief complaint: Abdominal Pain Stated complaint: Abd pain Time Seen by Provider: 06/04/19 21:16 Source: patient, RN notes reviewed, old records reviewed Mode of arrival: ambulatory Limitations: no limitations - History of Present Illness Initial comments: 48-year-old male patient past medical history of pancreatitis, optic neuritis presents ED for chief complaint of abdominal pain. Patient reports that this been ongoing for 4 months. Reports that his epigastric region. Reports that she has had nausea and vomiting. Does report that she is a alcohol drinker. Patient is concerned that this may be her gallbladder. Denies any complaints at this time. Systemic: Pt denies fatigue, fever/chills, rash. Pt denies weakness, night sweats, weight loss. Neuro: Pt denies headache, visual disturbances, syncope or pre-syncope. HEENT: Pt denies ocular discharge or irritation, otalgia, rhinorrhea, pharyngitis or notable lymphadenopathy. Cardiopulmonary: Pt denies chest pain, SOB, heart palpitations, dyspnea on exertion. Abdominal/GI: Pt denies diarrhea. : Pt denies dysuria, burning w/ urination, frequency/urgency. Denies new onset urinary or bowel incontinence. MSK: Pt denies myalgia, loss of strength or function in extremities. Neuro: Pt denies new onset weakness, paresthesias. - Related Data Home Medications Medication Instructions Recorded Confirmed Ibuprofen [Motrin Ib] 400 mg PO Q6HR PRN 07/02/18 07/03/18 Previous Rx's Medication Instructions Recorded EPINEPHrine [Epipen 2-Eduardo] 0.3 mg IM ONCE PRN #1 pack 07/03/18 Famotidine [Pepcid] 20 mg PO BID 5 Days #10 tablet 07/03/18 predniSONE 50 mg PO DAILY #4 tablet 07/03/18 Pantoprazole Sodium [Protonix] 20 mg PO Q24HR 14 Days #14 06/04/19 tablet. Allergies Allergy/AdvReac Type Severity Reaction Status Date / Time cyclobenzaprine Allergy Anaphylaxis Verified 06/04/19 21:09 levofloxacin [From Levaquin] Allergy Unknown Verified 06/04/19 21:09 progesterone Allergy loss of Verified 06/04/19 21:09 vision sulfamethoxazole Allergy Rash/Hives Verified 06/04/19 21:09 [From Bactrim] trimethoprim [From Bactrim] Allergy Rash/Hives Verified 06/04/19 21:09 lorazepam [From Ativan] AdvReac Hallucinati Verified 06/04/19 21:09 ons Review of Systems ROS Statement: Those systems with pertinent positive or pertinent negative responses have been documented in the HPI. ROS Other: All systems not noted in ROS Statement are negative. 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, liver disease, peripheral neuropathy, blindness, optic nerve neuropathy History of Any Multi-Drug Resistant Organisms: None Reported Past Surgical History: Tubal Ligation Additional Past Surgical History / Comment(s): pancreatitis, h pylori, optic nerve neuropathy, blindness, Past Anesthesia/Blood Transfusion Reactions: Motion Sickness Past Psychological History: No Psychological Hx Reported Smoking Status: Former smoker Past Alcohol Use History: Occasional Past Drug Use History: None Reported - Past Family History Mother Family Medical History: Hypertension General Exam - General Exam Comments Initial Comments: Constitutional: NAD, AOX3, Pt has pleasant affect. HEENT: NC/AT, trachea midline, neck supple, no lymphadenopathy. Posterior pharynx non erythematous, without exudates. External ears appear normal, without discharge. Mucous membranes moist. Eyes PERRLA, EOM intact. There is no scleral icterus. No pallor noted. Cardiopulmonary: RRR, no murmurs, rubs or gallops, no JVD noted. Lungs CTAB in anterior and posterior gutierres. No peripheral edema. Abdominal exam: Abdomen soft and non-distended. Abdomen tenderness to palpation epigastric, right upper quadrant region. No other areas of abdominal tenderness .. Bowel sounds active in LLQ. No hepatosplenomegaly. No ecchymosis Neuro: CN II-XII grossly intact. No nuchal rigidity. No raccon eyes, no wilson sign, no hemotympanum. No cervical spinal tenderness. MSK: Mild right posterior calf tenderness, no left posterior calf tenderness, homans sign negative bilaterally. Posterior tibialis and radial pulse +2 bilaterally. Sensation intact in upper and lower extremities. Full active ROM in upper and lower extremities, 5/5 stregnth. Limitations: no limitations Course Vital Signs 06/04/19 21:05 Temperature 97.5 F L Pulse Rate 75 Respiratory 18 Rate Blood Pressure 129/89 O2 Sat by Pulse 100 Oximetry Medical Decision Making - Medical Decision Making 48-year-old male patient past medical history of pancreatitis, optic neuritis presents ED for chief complaint of abdominal pain. Patient reports that this been ongoing for 4 months. Reports that his epigastric region. Reports that she has had nausea and vomiting. Does report that she is a alcohol drinker. Patient is concerned that this may be her gallbladder. Denies any complaints at this time. Patient vital signs are stable, afebrile. Physical exam displayed mild amount of right upper quadrant epigastric tenderness. Laboratory investigations revealed mild lactic acidosis 2.5. Mild transaminitis. Lipase 117. UA is negative. Serum alcohol is elevated at 276. KUB displayed no acute abdomen no change. Gallbladder ultrasound was negative. Patient is feeling some improvement with GI cocktail, Protonix. Other history taking patient reveals that she was seen by her primary care provider yesterday and also believe this to be gastritis. Patient was discharged with outpatient follow-up and prescription for Protonix. Case discussed in depth with Dr. Cifuentes. - Lab Data Result diagrams: 06/04/19 21:22 06/04/19 21:22 Lab Results 06/04/19 06/04/19 06/04/19 Range/Units 21:22 21:22 21:22 WBC 5.6 (3.8-10.6) k/uL RBC 4.56 (3.80-5.40) m/uL Hgb 15.3 (11.4-16.0) gm/dL Hct 45.4 (34.0-46.0) % MCV 99.5 (80.0-100.0) fL MCH 33.5 (25.0-35.0) pg MCHC 33.6 (31.0-37.0) g/dL RDW 14.7 (11.5-15.5) % Plt Count 176 (150-450) k/uL Neutrophils % 31 % Lymphocytes % 55 % Monocytes % 7 % Eosinophils % 2 % Basophils % 1 % Neutrophils # 1.8 (1.3-7.7) k/uL Lymphocytes # 3.1 (1.0-4.8) k/uL Monocytes # 0.4 (0-1.0) k/uL Eosinophils # 0.1 (0-0.7) k/uL Basophils # 0.1 (0-0.2) k/uL Sodium 146 H (137-145) mmol/L Potassium 4.1 (3.5-5.1) mmol/L Chloride 106 (98-107) mmol/L Carbon Dioxide 27 (22-30) mmol/L Anion Gap 13 mmol/L BUN 9 (7-17) mg/dL Creatinine 0.53 (0.52-1.04) mg/dL Est GFR (CKD-EPI)AfAm >90 (>60 ml/min/1.73 sqM) Est GFR (CKD-EPI)NonAf >90 (>60 ml/min/1.73 sqM) Glucose 103 H (74-99) mg/dL Plasma Lactic Acid Frank 2.5 H* (0.7-2.0) mmol/L Calcium 10.0 (8.4-10.2) mg/dL Total Bilirubin 0.7 (0.2-1.3) mg/dL AST 100 H (14-36) U/L ALT 54 H (4-34) U/L Alkaline Phosphatase 55 (38-126) U/L Total Protein 8.3 H (6.3-8.2) g/dL Albumin 5.0 (3.5-5.0) g/dL Lipase 117 (23-300) U/L Urine Color Urine Appearance (Clear) Urine pH (5.0-8.0) Ur Specific [place] (1.001-1.035) Urine Protein (Negative) Urine Glucose (UA) (Negative) Urine Ketones (Negative) Urine Blood (Negative) Urine Nitrite (Negative) Urine Bilirubin (Negative) Urine Urobilinogen (<2.0) mg/dL Ur Leukocyte Esterase (Negative) Urine HCG, Qual (Not Detectd) Serum Alcohol 276 H* mg/dL 06/04/19 06/04/19 Range/Units 22:27 22:27 WBC (3.8-10.6) k/uL RBC (3.80-5.40) m/uL Hgb (11.4-16.0) gm/dL Hct (34.0-46.0) % MCV (80.0-100.0) fL MCH (25.0-35.0) pg MCHC (31.0-37.0) g/dL RDW (11.5-15.5) % Plt Count (150-450) k/uL Neutrophils % % Lymphocytes % % Monocytes % % Eosinophils % % Basophils % % Neutrophils # (1.3-7.7) k/uL Lymphocytes # (1.0-4.8) k/uL Monocytes # (0-1.0) k/uL Eosinophils # (0-0.7) k/uL Basophils # (0-0.2) k/uL Sodium (137-145) mmol/L Potassium (3.5-5.1) mmol/L Chloride (98-107) mmol/L Carbon Dioxide (22-30) mmol/L Anion Gap mmol/L BUN (7-17) mg/dL Creatinine (0.52-1.04) mg/dL Est GFR (CKD-EPI)AfAm (>60 ml/min/1.73 sqM) Est GFR (CKD-EPI)NonAf (>60 ml/min/1.73 sqM) Glucose (74-99) mg/dL Plasma Lactic Acid Frank (0.7-2.0) mmol/L Calcium (8.4-10.2) mg/dL Total Bilirubin (0.2-1.3) mg/dL AST (14-36) U/L ALT (4-34) U/L Alkaline Phosphatase (38-126) U/L Total Protein (6.3-8.2) g/dL Albumin (3.5-5.0) g/dL Lipase (23-300) U/L Urine Color Yellow Urine Appearance Clear (Clear) Urine pH 7.0 (5.0-8.0) Ur Specific [place] 1.022 (1.001-1.035) Urine Protein Negative (Negative) Urine Glucose (UA) Negative (Negative) Urine Ketones Negative (Negative) Urine Blood Negative (Negative) Urine Nitrite Negative (Negative) Urine Bilirubin Negative (Negative) Urine Urobilinogen <2.0 (<2.0) mg/dL Ur Leukocyte Esterase Negative (Negative) Urine HCG, Qual Not Detected (Not Detectd) Serum Alcohol mg/dL - EKG Data -: EKG Interpreted by Me EKG Comments: 50. 77, when necessary for 158, curious 88, QT/QTc 422/477. Normal sinus rhythm, normal EKG, no concern for acute ischemia. Disposition Clinical Impression: Gastritis Disposition: HOME SELF-CARE Condition: Stable Instructions (If sedation given, give patient instructions): Gastritis (ED) Additional Instructions: Follow-up with primary care provider and GI consult tomorrow. Take medication as directed. Return to ER if condition worsens. Prescriptions: Pantoprazole Sodium [Protonix] 20 mg PO Q24HR 14 Days #14 tablet.dr Is patient prescribed a controlled substance at d/c from ED?: No Referrals: David Collins DO [Primary Care Provider] - 1-2 days
[2019-06-04 21:53] LABS: ALT 54 U/L (4-34); AST 100 U/L (14-36); African American GFR (CKD) >90 (>60 ml/min/1.73 sqM); Alkaline Phosphatase 55 U/L (38-126); Anion Gap 13 mmol/L; Blood Urea Nitrogen 9 mg/dL (7-17); Carbon Dioxide 27 mmol/L (22-30); Chloride 106 mmol/L (98-107); Glucose 103 mg/dL (74-99); Non-African American GFR(CKD) >90 (>60 ml/min/1.73 sqM); Potassium 4.1 mmol/L (3.5-5.1); Sodium 146 mmol/L (137-145); Total Bilirubin 0.7 mg/dL (0.2-1.3); Total Protein 8.3 g/dL (6.3-8.2)
[2019-06-04 22:11] LABS: Alcohol 276 mg/dL
--- NOTE | 2019-06-04 22:15 | US ---
EXAMINATION TYPE: US gallbladder DATE OF EXAM: 06/04/2019 COMPARISON: 09/17/2014 CLINICAL HISTORY: RUQ, epigastric pain. RUQ pain EXAM MEASUREMENTS: Liver Length: 13.8 cm Gallbladder Wall: 0.2 cm CBD: 0.5 cm Right Kidney: 9.9 x 4.4 x 5.3 cm Pancreas: Obscured by bowel gas Liver: Appears slightly coarse Gallbladder: wnl Evidence for sonographic Dailey's sign: neg CBD: wnl Right Kidney: No hydronephrosis or masses seen IMPRESSION: Negative exam. No gallstones or dilated ducts.
[2019-06-04] MEDS ORDERED: MAG HYDROX/AL HYDROX/SIMETH 30 ML, HYOSCYAMINE ELIXIR 10 ML, LIDOCAINE VISCOUS 2% 10 ML PO STA ×3 (22:24)
[2019-06-04 22:39] LABS: Appearance,Urine Clear (Clear); Bilirubin,Urine Negative (Negative); Blood,Urine Negative (Negative); Color,Urine Yellow; Glucose,Urine (UA) Negative (Negative); Ketones,Urine Negative (Negative); Leukocyte Esterase,Urine Negative (Negative); Nitrite,Urine Negative (Negative); Protein,Urine Negative (Negative); Specific Gravity,Urine 1.022 (1.001-1.035); Urobilinogen,Urine <2.0 mg/dL (<2.0)
[2019-06-04] MEDS ORDERED: PANTOPRAZOLE 40 MG/10 ML VIAL IVP STA (23:16)
--- NOTE | 2019-06-04 23:41 | XR ---
EXAMINATION TYPE: XR KUB DATE OF EXAM: 06/04/2019 COMPARISON: 10/07/2016 HISTORY: Abdominal pain TECHNIQUE: FINDINGS: 2 views upright were obtained and show no sign of intestinal obstruction or pneumoperitoneu m. Fecal pattern is normal. Lung bases are clear. There are no pathologic calcifications. There is no sign of a mass. IMPRESSION: Nonacute abdomen. No change.
--- NOTE | 2019-06-04 23:52 | ED ---
Medical Decision Making - Medical Decision Making Daughter is with patient and will take her home and watch her for the night. - Lab Data Result diagrams: 06/04/19 21:22 06/04/19 21:22 Lab Results 06/04/19 06/04/19 06/04/19 Range/Units 21:22 21:22 21:22 WBC 5.6 (3.8-10.6) k/uL RBC 4.56 (3.80-5.40) m/uL Hgb 15.3 (11.4-16.0) gm/dL Hct 45.4 (34.0-46.0) % MCV 99.5 (80.0-100.0) fL MCH 33.5 (25.0-35.0) pg MCHC 33.6 (31.0-37.0) g/dL RDW 14.7 (11.5-15.5) % Plt Count 176 (150-450) k/uL Neutrophils % 31 % Lymphocytes % 55 % Monocytes % 7 % Eosinophils % 2 % Basophils % 1 % Neutrophils # 1.8 (1.3-7.7) k/uL Lymphocytes # 3.1 (1.0-4.8) k/uL Monocytes # 0.4 (0-1.0) k/uL Eosinophils # 0.1 (0-0.7) k/uL Basophils # 0.1 (0-0.2) k/uL Sodium 146 H (137-145) mmol/L Potassium 4.1 (3.5-5.1) mmol/L Chloride 106 (98-107) mmol/L Carbon Dioxide 27 (22-30) mmol/L Anion Gap 13 mmol/L BUN 9 (7-17) mg/dL Creatinine 0.53 (0.52-1.04) mg/dL Est GFR (CKD-EPI)AfAm >90 (>60 ml/min/1.73 sqM) Est GFR (CKD-EPI)NonAf >90 (>60 ml/min/1.73 sqM) Glucose 103 H (74-99) mg/dL Plasma Lactic Acid Frank 2.5 H* (0.7-2.0) mmol/L Calcium 10.0 (8.4-10.2) mg/dL Total Bilirubin 0.7 (0.2-1.3) mg/dL AST 100 H (14-36) U/L ALT 54 H (4-34) U/L Alkaline Phosphatase 55 (38-126) U/L Total Protein 8.3 H (6.3-8.2) g/dL Albumin 5.0 (3.5-5.0) g/dL Lipase 117 (23-300) U/L Urine Color Urine Appearance (Clear) Urine pH (5.0-8.0) Ur Specific [place] (1.001-1.035) Urine Protein (Negative) Urine Glucose (UA) (Negative) Urine Ketones (Negative) Urine Blood (Negative) Urine Nitrite (Negative) Urine Bilirubin (Negative) Urine Urobilinogen (<2.0) mg/dL Ur Leukocyte Esterase (Negative) Urine HCG, Qual (Not Detectd) Serum Alcohol 276 H* mg/dL 06/04/19 06/04/19 Range/Units 22:27 22:27 WBC (3.8-10.6) k/uL RBC (3.80-5.40) m/uL Hgb (11.4-16.0) gm/dL Hct (34.0-46.0) % MCV (80.0-100.0) fL MCH (25.0-35.0) pg MCHC (31.0-37.0) g/dL RDW (11.5-15.5) % Plt Count (150-450) k/uL Neutrophils % % Lymphocytes % % Monocytes % % Eosinophils % % Basophils % % Neutrophils # (1.3-7.7) k/uL Lymphocytes # (1.0-4.8) k/uL Monocytes # (0-1.0) k/uL Eosinophils # (0-0.7) k/uL Basophils # (0-0.2) k/uL Sodium (137-145) mmol/L Potassium (3.5-5.1) mmol/L Chloride (98-107) mmol/L Carbon Dioxide (22-30) mmol/L Anion Gap mmol/L BUN (7-17) mg/dL Creatinine (0.52-1.04) mg/dL Est GFR (CKD-EPI)AfAm (>60 ml/min/1.73 sqM) Est GFR (CKD-EPI)NonAf (>60 ml/min/1.73 sqM) Glucose (74-99) mg/dL Plasma Lactic Acid Frank (0.7-2.0) mmol/L Calcium (8.4-10.2) mg/dL Total Bilirubin (0.2-1.3) mg/dL AST (14-36) U/L ALT (4-34) U/L Alkaline Phosphatase (38-126) U/L Total Protein (6.3-8.2) g/dL Albumin (3.5-5.0) g/dL Lipase (23-300) U/L Urine Color Yellow Urine Appearance Clear (Clear) Urine pH 7.0 (5.0-8.0) Ur Specific [place] 1.022 (1.001-1.035) Urine Protein Negative (Negative) Urine Glucose (UA) Negative (Negative) Urine Ketones Negative (Negative) Urine Blood Negative (Negative) Urine Nitrite Negative (Negative) Urine Bilirubin Negative (Negative) Urine Urobilinogen <2.0 (<2.0) mg/dL Ur Leukocyte Esterase Negative (Negative) Urine HCG, Qual Not Detected (Not Detectd) Serum Alcohol mg/dL Disposition Clinical Impression: Gastritis Disposition: HOME SELF-CARE Condition: Stable Instructions (If sedation given, give patient instructions): Gastritis (ED) Additional Instructions: Follow-up with primary care provider and GI consult tomorrow. Take medication as directed. Return to ER if condition worsens. Prescriptions: Pantoprazole Sodium [Protonix] 20 mg PO Q24HR 14 Days #14 tablet.dr Is patient prescribed a controlled substance at d/c from ED?: No Referrals: David Collins DO [Primary Care Provider] - 1-2 days Procedures - Watson Protocol (Time Out) Nurse: Kristina Cyr
[2019-06-06 18:01] LABS: EBV-EA (IgG) <0.2 AI; EBV-EBNA(IgG) >8.0 AI; EBV-VCA (IgG) >8.0 AI
[2019-06-06 18:05] LABS: Hepatitis B Core IgM Non-Reactive (Non-Reactive); Hepatitis B Surface Antigen Non-Reactive (Non-Reactive); Hepatitis C IgG Antibody Non-Reactive (Non-Reactive)
[2019-06-06 20:23] LABS: EBV-VCA (IgM) <0.2 AI
[2019-06-06 21:17] LABS: Hepatitis A Antibody IgM Non-Reactive (Non-Reactive)
== END 2019-06-05 00:18 | disposition home or self-care (01) ==
LOC: EC 20:56
DX: K29.70 Gastritis, unspecified, without bleeding (principal); E87.2 Acidosis; R74.0 Nonspecific elevation of levels of transaminase and lactic acid dehydrogenase [LDH]; Z87.891 Personal history of nicotine dependence; Z88.1 Allergy status to other antibiotic agents; Z88.2 Allergy status to sulfonamides; Z88.8 Allergy status to other drugs, medicaments and biological substances; Z98.890 Other specified postprocedural states; Z87.19 Personal history of other diseases of the digestive system; Y90.8 Blood alcohol level of 240 mg/100 ml or more
CPT/HCPCS: 99284; 96374; 96375 ×2; 96361; 36415; 93005; 86665 ×2; 80053; 80074; 86663; 83605; 83690; 85025; 81003; 81025; 86664; 74018; 76705; G0480; J2405; J2270; C9113; 80320; 86709

== ENCOUNTER → 2019-06-27 | Outpatient (CLI) | payer MEDICARE, OTHER ==
--- NOTE | 2019-06-27 10:48 | MM ---
Reason for exam: clinical finding. Last mammogram was performed 2 years and 3 months ago. Physical Findings: Nurse did not find any significant physical abnormalities on exam. MG 3D Diag Mammo W/Cad GEOVANNA Bilateral CC and MLO view(s) were taken. LM view(s) were taken of the left breast. Prior study comparison: April 09, 2017, bilateral MG screening mammo w CAD. January 31, 2013, bilateral digital screening mammo w/CAD. The breast tissue is heterogeneously dense. This may lower the sensitivity of mammography. Benign vascular calcifications. Skin lesion far posteriorly and medially right breast at the site of patient's concern. Dense tissues throughout. These results were verbally communicated with the patient and result sheet given to the patient on 06/27/19. ASSESSMENT: Incomplete: need additional imaging evaluation, BI-RAD 0 RECOMMENDATION: Ultrasound of the left breast.
--- NOTE | 2019-06-27 10:51 | USB ---
Reason for exam: additional evaluation requested from abnormal screening. US Breast LT Technologist: Linda Sullivan Left complete breast ultrasound includes all four quadrants, the retroareolar region and axilla. Finding demonstrates a 0.7 x 0.7 x 0.6cm circular, cystic lesion at 2 o'clock, a 1.1 x 1.5 x 0.7cm ova, hypoechoic, complicated cyst partially involving skin, probable sebaceous cyst at 7 o'clock, and ducts at the posterior nipple. Very dense tissues. These results were verbally communicated with the patient and result sheet given to the patient on 06/27/19. ASSESSMENT: Benign, BI-RAD 2 RECOMMENDATION: Routine screening mammogram of both breasts in 1 year. Manage on a clinical basis with regard to upper inner quadrant pain. The dermal lesion likely sebaceous cyst can be excised if symptomatic.
== END | disposition home or self-care (01) ==
LOC: RADMAMWWP 08:22
PROVIDERS: ATTEND Surgery Plastic and Reconstructive Surgery
DX: N64.4 Mastodynia (principal); R92.8 Other abnormal and inconclusive findings on diagnostic imaging of breast; N63.20 Unspecified lump in the left breast, unspecified quadrant
CPT/HCPCS: 77066; 76641; G0279; 77062

== ENCOUNTER → 2019-11-23 | Outpatient (CLI) | payer MEDICARE, OTHER ==
--- NOTE | 2019-11-23 11:40 | NM ---
EXAMINATION TYPE: NM hepatobiliary w EF DATE OF EXAM: 11/23/2019 COMPARISON: NONE HISTORY: Right upper quadrant pain TECHNIQUE: After the intravenous administration of 4.5 mCi Tc 99m Mebrofenin hepatobiliary scintigrap hy is performed. Immediate images post injection. FINDINGS: There is satisfactory initial accumulation of tracer by the liver. The gallbladder is visualized wit hin 10 minutes. The small bowel activity is noted within 10 minutes. At one hour 8 ounces of oral e nsure plus is given to mimic CCK and gallbladder ejection fraction is calculated at 95 %, above the u pper limit of the normal range. Therefore there is no scintigraphic evidence of cystic or common maria e duct obstruction to suggest acute cholecystitis. IMPRESSION: Findings may represent hyperdynamic gallbladder
== END | disposition home or self-care (01) ==
LOC: RADNMMAIN 08-14 06:55
PROVIDERS: ATTEND Family Medicine
DX: R10.11 Right upper quadrant pain (principal)
CPT/HCPCS: 78226; A9537

== ENCOUNTER 2019-12-11 07:19 | Day surgery (SDC) | payer MEDICARE ==
[2019-12-07 11:45] VITALS: BMI 22.1
[~2019-12-11 07:19] MED LIST: ACETAMINOPHEN TAB 500 MG TAB PO ONE; DEXAMETHASONE SOD PHOSPHATE 10 MG/ML 1 ML VIAL IV ONE; HEPARIN SODIUM,PORCINE 5,000 UNIT/ML 1 ML VIAL SQ ONE; LACTATED RINGERS 1,000 ML IV SCH; LIDOCAINE 1% (10MG/ML) FOR IV START INTRADERMA PRN; ONDANSETRON 4 MG/2 ML VIAL IVP ONE; SCOPOLAMINE 1.5MG/72HR PATCH TRANSDERM ONE
[2019-12-11] MEDS ORDERED: ACETAMINOPHEN TAB 500 MG TAB ONE (07:51)
[2019-12-11] MEDS ORDERED: ONDANSETRON 4 MG/2 ML VIAL ONE (07:52)
[2019-12-11] MEDS ORDERED: HEPARIN SODIUM,PORCINE 5,000 UNIT/ML 1 ML VIAL ONE (07:52)
--- NOTE | 2019-12-11 08:08 | P.GSHP ---
History of Present Illness H&P Date: 12/11/19 Chief Complaint: Right upper quadrant pain This a 49-year-old female who presents today for laparoscopic cholestatic. Patient's with rectal pain. 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 Past Anesthesia/Blood Transfusion Reactions: Motion Sickness, Postoperative Nausea & Vomiting (PONV) Smoking Status: Never smoker - Past Family History Mother Family Medical History: No Reported History Medications and Allergies Home Medications Medication Instructions Recorded Confirmed Type Famotidine [Pepcid] 20 mg PO DAILY PRN 12/04/19 12/11/19 History Ondansetron [Zofran ODT] 4 mg PO Q8HR PRN 12/04/19 12/11/19 History Allergies Allergy/AdvReac Type Severity Reaction Status Date / Time cyclobenzaprine Allergy Anaphylaxis Verified 12/11/19 07:40 Iodine and Iodide Containing Allergy Nausea & Verified 12/11/19 07:40 Produc Vomiting levofloxacin [From Levaquin] Allergy loss of Verified 12/11/19 07:40 vision progesterone Allergy loss of Verified 12/11/19 07:40 vision sulfamethoxazole Allergy Rash/Hives Verified 12/11/19 07:40 [From Bactrim] trimethoprim [From Bactrim] Allergy Rash/Hives Verified 12/11/19 07:40 lorazepam [From Ativan] AdvReac Hallucinati Verified 12/11/19 07:40 ons Surgical - Exam Vital Signs Temp Pulse Resp BP Pulse Ox 97.7 F 73 16 140/81 97 12/11/19 07:42 12/11/19 07:42 12/11/19 07:42 12/11/19 07:42 12/11/19 07:42 - General well developed, well nourished, no distress - Eyes PERRL - ENT normal pinna - Neck no masses - Respiratory normal expansion - Cardiovascular Rhythm: regular - Abdomen Abdomen: soft, non tender Assessment and Plan Plan: Chronic cholecystitis Abnormal HIDA scan We'll perform laparoscopic cholecystectomy.
[2019-12-11] MEDS ORDERED: LIDOCAINE 1% INJ 10MG/ML (20 ML MDV) ONE (08:27)
[2019-12-11] MEDS ORDERED: ROCURONIUM BROMIDE 10 MG/ML 5 ML VIAL IV ONE (08:27)
[2019-12-11] MEDS ORDERED: fentaNYL (PF) 50 MCG/ML 2 ML AMP ONE (08:27)
[2019-12-11] MEDS ORDERED: GLYCOPYRROLATE 0.2 MG/ML 2 ML VIAL ONE (08:27)
[2019-12-11] MEDS ORDERED: KETOROLAC 30 MG/ML 1 ML VIAL ONE (08:27)
[2019-12-11] MEDS ORDERED: NEOSTIGMINE 1 MG/ML 10 ML VIAL ONE (08:27)
[2019-12-11] MEDS ORDERED: MIDAZOLAM 2 MG/2 ML VIAL ONE (08:27)
[2019-12-11] MEDS ORDERED: PHENYLEPHRINE-0.9% NACL SYG 1 MG/10 ML SYRINGE ONE (08:27)
[2019-12-11] MEDS ORDERED: SUCCINYLCHOLINE CHLORIDE 100 MG/5 ML SYR IV ONE (08:27)
[2019-12-11] MEDS ORDERED: PROPOFOL 10 MG/ML 20 ML VIAL IV ONE (08:27)
[2019-12-11] MEDS ORDERED: BUPIVACAIN-EPI 0.25%-1:200,000 30 ML VIAL SQ ONE (08:49)
--- NOTE | 2019-12-11 09:05 | P.OP ---
Date of Procedure: 12/11/19 Preoperative Diagnosis: Cholecystitis Postoperative Diagnosis: Cholecystitis Procedure(s) Performed: Laparoscopic cholecystectomy Anesthesia: MAX Surgeon: Moy Conte Estimated Blood Loss (ml): 5 Pathology: other (Gallbladder) Condition: stable Disposition: PACU Description of Procedure: The patient was placed on the operating table. The patient received a general endotracheal tube anesthesia. The patients abdomen was prepped and draped in the usual sterile fashion. Through an infraumbilical stab incision, the fascia of the anterior abdominal wall was grasped with a pair of Kochers and then the Veress needle was placed in the peritoneal cavity. Position of the Veress needle was confirmed with positive drop test. The abdomen was then insufflated. After adequate insufflation, the 10 mm trocar was placed in the peritoneal cavity. Following this the laparoscope was placed in the peritoneal cavity. The patient was placed in the head-up, right side up position and then a 5 mm trocar was placed in the right lateral and right subcostal position under direct visualization. A 8 mm trocar was placed in the epigastric position. The gallbladder was grasped in the fundus and infundibulum. Traction on the gallbladder was placed in the lateral and the cephalad positions. The triangle of Calot was visualized.. The cystic duct was bluntly dissected until the union of the cystic duct and common bile duct was seen. A critical view of safety was achieved. The cystic duct was then divided and sealed with the Harmonic scissors. A PDS Endoloop was then placed throughout the cystic duct stump. The cystic artery divided and sealed with the Harmonic scissors. The gallbladder was then removed from the liver bed using Harmonic scissors. The gallbladder was then extracted through the epigastric port site. Operative field was checked for any bleeding spots and Harmonic scissors was used to coagulate the liver bed. The abdomen was irrigated. The trocars were removed. The skin was closed using interrupted 3-0 Vicryl suture. Dermabond dressing were applied. The patient tolerated the procedure well.
[2019-12-11] MEDS ORDERED: ONDANSETRON 4 MG/2 ML VIAL IVP ONE (09:09)
[2019-12-11] MEDS: HYDROmorphone 0.5 MG/0.5 ML SYRINGE IVP PRN ×2 (09:11→09:23)
[2019-12-11] MEDS ORDERED: LACTATED RINGERS 1,000 ML IV ONE (09:16)
[2019-12-11 09:21] VITALS: TEMP 97
[2019-12-11] MEDS ORDERED: diphenhydrAMINE 50 MG/ML 1 ML VIAL IVP ONE (09:33)
[2019-12-11 10:16] VITALS: RESP 18
[2019-12-11 10:35] VITALS: BP 130/80; PULSE 72
== END 2019-12-11 10:37 | disposition home or self-care (01) ==
LOC: OR 07:19
PROVIDERS: ATTEND Surgery
DX: K81.1 Chronic cholecystitis (principal); K21.9 Gastro-esophageal reflux disease without esophagitis; M19.90 Unspecified osteoarthritis, unspecified site; Z86.73 Personal history of transient ischemic attack (TIA), and cerebral infarction without residual deficits; E88.40 Mitochondrial metabolism disorder, unspecified; G62.9 Polyneuropathy, unspecified; Z86.19 Personal history of other infectious and parasitic diseases; Z86.2 Personal history of diseases of the blood and blood-forming organs and certain disorders involving the immune mechanism; Z98.51 Tubal ligation status; Z79.899 Other long term (current) drug therapy; Z88.1 Allergy status to other antibiotic agents; Z88.2 Allergy status to sulfonamides; Z88.8 Allergy status to other drugs, medicaments and biological substances; Z91.048 Other nonmedicinal substance allergy status
CPT/HCPCS: 81025; 88304; 47562; J2250; J1200; J1644; J1100; J2710; J0690; J2405; J2001; J3010; J1885; J2370; J0330; J2704; J1170

== ENCOUNTER 2020-02-14 07:43 | Day surgery (SDC) | payer MEDICARE ==
[2020-02-13 09:08] VITALS: BMI 22.1
[~2020-02-14 07:43] MED LIST changes: -ACETAMINOPHEN TAB 500 MG TAB PO ONE; -DEXAMETHASONE SOD PHOSPHATE 10 MG/ML 1 ML VIAL IV ONE; -HEPARIN SODIUM,PORCINE 5,000 UNIT/ML 1 ML VIAL SQ ONE; -LIDOCAINE 1% (10MG/ML) FOR IV START INTRADERMA PRN; +MIDAZOLAM 2 MG/2 ML VIAL IV PRN; -ONDANSETRON 4 MG/2 ML VIAL IVP ONE; +ONDANSETRON 4 MG/2 ML VIAL IVP PRN; -SCOPOLAMINE 1.5MG/72HR PATCH TRANSDERM ONE; +fentaNYL (PF) 50 MCG/ML 2 ML AMP IV PRN; +fentaNYL (PF) 50 MCG/ML 2 ML AMP IVP PRN
[2020-02-14 08:35] VITALS: RESP 16; TEMP 97.9
[2020-02-14] MEDS ORDERED: PROPOFOL 10 MG/ML 20 ML VIAL IV ONE (09:06)
[2020-02-14] MEDS ORDERED: LIDOCAINE 1% INJ 10MG/ML (20 ML MDV) ONE (09:06)
--- NOTE | 2020-02-14 09:27 | P.PCN ---
Date of Procedure: 02/14/20 Procedure(s) Performed: Brief history: Patient is a pleasant 49-year-old white female scheduled for an elective upper endoscopy as well as colonoscopy as a part of evaluation of epigastric pain and change in bowel habits for the last 8 months duration. She complains of some constipation but no rectal bleeding. Procedure performed: Esophagogastroduodenoscopy with biopsy Colonoscopy Preoperative diagnosis: Upper abdominal pain Change in bowel habits Anesthesia: MAC Procedure: After informed consent was obtained from the patient was brought into the endoscopy unit and IV sedation was administered by anesthesia under continuous monitoring. Initially upper endoscopy was done. The Olympus GF 160 video endoscope was inserted inserted into the mouth and esophagus intubated without any difficulty and was gradually advanced into the stomach and duodenum and carefully examined. The bulb and second part of the duodenum appeared normal. The scope was then withdrawn into the stomach adequately insufflated with air and upon careful examination the antrum had scattered erosions and antral biopsies were done from this area. The body, cardia and fundus appeared normal. The scope was then withdrawn into the esophagus. The GE junction was located at 40 cm to the incisors. It appeared regular with no erythema erosions or ulcerations. Rest of the esophagus appeared normal. Patient tolerated the procedure well. At this time the patient continued to remain sedation. Initial digital rectal examination was normal. Olympus CF 160 video colonoscope was then inserted into the rectum and gradually advanced to the cecum without any difficulty. Careful examination was performed as the scope was gradually being withdrawn. The prep was excellent. The cecum, ascending colon, transverse colon, descending colon, sigmoid colon and rectum appeared normal. Scattered sigmoid diverticulosis seen. Retroflexion was performed in the rectum and no lesions were noted. Patient tolerated the procedure well. Impression: 1. Upper endoscopy revealed mild antral erosive gastritis. 2. Colonoscopy revealed scattered sigmoid diverticulosis but no evidence of colorectal neoplasia Recommendations: Findings of this examination were discussed with the patient as well as her family. She was advised to follow with the biopsy results.. She will continue her current medications. Repeat colonoscopy in 5 in 10 years
[2020-02-14] MEDS ORDERED: ONDANSETRON 4 MG/2 ML VIAL ONE (09:41)
[2020-02-14] MEDS ORDERED: ONDANSETRON 4 MG/2 ML VIAL IVP ONE (09:44)
[2020-02-14 09:49] VITALS: BP 118/79; PULSE 65
--- NOTE | 2020-02-16 06:43 | CDI ---
Date: 02.16.2020 CDS/Paper Reel Operator Name: Reina Philippe Phone: If any questions, call Ale Iqbal Motorcycle Police Officer at [phone] Patient Name: Chetna Rodrigez Admit Date 02.14.20 Discharge Date: 02.14.20 ATTENTION: The [facility] Coding Staff appreciate your assistance in clarifying documentation. Please respond to the clarification below the line at the bottom and electronically sign. The [facility] Coding staff will review the response and follow-up if needed. Please note: Queries are made part of the Legal Health Record. If you have any questions, please contact the Motorcycle Police Officer. Dear Dr. Starr In order to code to the greatest specificity and for the greatest reimbursement I need the following information: In the EGD documentation there is no mention of a biopsy of the esophagus, per the path report there was one sent to pathology. Please clarify. Thank you for your kind consideration. Hi, Addendum done in EMR Lolis Starr MTDD
== END 2020-02-14 10:18 | disposition home or self-care (01) ==
LOC: ORWHC2ENDO 07:43
PROVIDERS: ATTEND Internal Medicine Gastroenterology
DX: K57.30 Diverticulosis of large intestine without perforation or abscess without bleeding (principal); K29.50 Unspecified chronic gastritis without bleeding; K22.8 Other specified diseases of esophagus; K25.9 Gastric ulcer, unspecified as acute or chronic, without hemorrhage or perforation; K21.9 Gastro-esophageal reflux disease without esophagitis
CPT/HCPCS: 45378; 43239; 81025; 88305; J2405; J2001; J2704

== ENCOUNTER → 2020-03-07 | Outpatient (CLI) | payer MEDICARE ==
--- NOTE | 2020-03-07 20:21 | BD ---
EXAMINATION TYPE: Axial Bone Density DATE OF EXAM: 03/07/2020 COMPARISON: NONE CLINICAL HISTORY: 49 YR OLD FEMALE....ICD-10 CODE: Z78.0 POST MENOPAUSAL Height: 62.8 Weight: 122 FRAX RISK QUESTIONS: NOTHING TO NOTE HERE RISK FACTORS HISTORY OF: Active: PT BLIND Diet low in dairy products/other sources of calcium: YES Postmenopausal woman: YES, SEPTEMBER 2019, 48 YRS OLD Hyperparathyroidism: NO Adrenal Insufficiency: NO MEDICATIONS: Additional Medications: NOTHING ADDITIONAL TO ADD Additional History: BLIND, LOST SITE FROM PROGESTERONE THERAPY, EXAM MEASUREMENTS: Bone mineral densitometry was performed using the [employer] System. Bone mineral density as measured about the Lumbar spine is: ----- L1-L4(G/cm2): 1.140 T Score Values are as follows: ----- L1: -1.1 ----- L2: -0.7 ----- L3: 0.2 ----- L4: -0.1 ----- L1-L4: -0.3 Bone mineral density FIRST BONE DENSITY SCAN........BASELINE STUDY Bone mineral density about the R hip (g/cm2): 0.962 Bone mineral density about the L hip (g/cm2): 0.942 T Score values are as follows: -----R Neck: -1.0 -----L Neck: -1.2 -----R Total: -0.4 -----L Total: -0.5 Bone mineral density BASELINE STUDY FRAX%s: THERE IS A 3.9% CHANCE FOR A MAJOR OSTEOPOROTIC FX AND A 0.2% FOR HIP......PROBABILITY FO R FX IN 10 YRS TIME IMPRESSION: Osteopenia (T Score between -2.5 and -1). There is slightly increased risk of fracture and the patient may be considered for treatment. Re-Screen 2-5 years. NOTE: T-SCORE=SD OF THE YOUNG ADULT MEAN.
== END | disposition home or self-care (01) ==
LOC: RADBDWWP 13:15
PROVIDERS: ATTEND Family Medicine
DX: M85.80 Other specified disorders of bone density and structure, unspecified site (principal); Z78.0 Asymptomatic menopausal state
CPT/HCPCS: 77080

== ENCOUNTER → 2020-05-14 | Outpatient (CLI) | payer MEDICARE ==
--- NOTE | 2020-05-14 15:15 | US ---
EXAMINATION TYPE: US transvaginal DATE OF EXAM: 05/14/2020 COMPARISON: US dated 10/18/2018, CT 07/02/2018 CLINICAL HISTORY: R10.2 Pelvic pain. Patient stated had 2 days pelvic pain and bloating, but has subs ided; ; tubal ligation. TECHNIQUE: Transvaginal (TV). Transvaginal sonographic images were medically necessary to better as sess anatomy as bladder was not full (patient unable to hold full bladder). Date of LMP: early April had vaginal spotting. EXAM MEASUREMENTS: Uterus: 7.4x 4.0 x 3.4 cm Endometrial Stripe: 0.4 cm Right Ovary: 1.6 x 1.3 x 1.2 cm Left Ovary: not seen 1. Uterus: Anteverted ; multiple Nabothian Cysts seen in cervix with largest = 0.8 x 0.8 x 0.6cm; up per right myometrium is round isoechoic heterogeneous mass with appearance of uterine fibroid = 1.4 x 1.1 x 1.2cm and small left mid myometrial hypoechoic fibroid = 0.7 x 0.8 x 0.6cm. 2. Endometrium: unable to correlate thickness with vaginal spotting this April and prior LMP in 2019 per patient. 3. Right Ovary: appears wnl 4. Left Ovary: not seen Spectral, color and waveform Doppler imaging shows arterial and venous flow within the right ovary. 5. Bilateral Adnexa: wnl 6. Posterior cul-de-sac: wnl IMPRESSION: Fibroid uterus, some limitations to the exam.
== END | disposition home or self-care (01) ==
LOC: RADUSWWP 13:48
PROVIDERS: ATTEND Obstetrics & Gynecology
DX: D25.9 Leiomyoma of uterus, unspecified (principal)
CPT/HCPCS: 76830

== ENCOUNTER → 2021-02-20 | Outpatient (CLI) | payer MEDICARE ==
--- NOTE | 2021-02-20 12:22 | US ---
EXAMINATION TYPE: US liver DATE OF EXAM: 02/20/2021 COMPARISON: NONE CLINICAL HISTORY: 50-year-old female R94.5 Abnormal results of liver function studies. Abnormal liver function, cholecystectomy, vomiting Technique: Multiple sonographic images of the right upper quadrant are obtained. FINDINGS: EXAM MEASUREMENTS: Liver Length: 14.4 cm Gallbladder: Surgically absent CBD: 0.5 cm Right Kidney: 10.5 x 4.3 x 4.7 cm Pancreas: Somewhat hypoechoic appearance to the visualized pancreatic tail and a contiguous portion of the pancreatic body. Refer to images 2 through 5. Suboptimal visualization of the pancreatic head. Liver: wnl Gallbladder: Surgically absent Evidence for sonographic Dailey's sign: no CBD: wnl Right Kidney: wnl IMPRESSION: 1. Limited visualization of the pancreas. The visualized pancreatic tail and a contiguous portion of the pancreatic body appear somewhat hypoechoic. Correlate with amylase and lipase levels and tumor ma rkers for any abnormality. Either pancreas protocol CT versus a 6 - 8 week follow-up ultrasound to ex clude the possibility of a mass. 2. Status post cholecystectomy. No biliary ductal dilatation.
== END | disposition home or self-care (01) ==
LOC: RADUSWWP 06:59
PROVIDERS: ATTEND Internal Medicine Gastroenterology
DX: R94.5 Abnormal results of liver function studies (principal); R11.10 Vomiting, unspecified; Z90.49 Acquired absence of other specified parts of digestive tract
CPT/HCPCS: 76705

== ENCOUNTER → 2021-02-27 | Outpatient (CLI) | payer MEDICARE ==
[2021-02-27 23:06] LABS: Basophils # (A) 0.02 X 10*3/uL (0.00-0.10); Basophils % (A) 0.4 %; Eosinophils # (A) 0.01 X 10*3/uL (0.04-0.35); Eosinophils % (A) 0.2 %; HCT 35.5 % (37.2-46.3); HGB 11.8 g/dL (12.0-15.0); Lymphocytes # (A) 1.37 X 10*3/uL (0.90-5.00); MCH 32.4 pg (27.0-32.0); MCHC 33.2 g/dL (32.0-37.0); MCV 97.5 fL (80.0-97.0); Mean Platelet Volume 9.8 fL (9.5-12.2); Monocytes # (A) 0.43 X 10*3/uL (0.20-1.00); Monocytes % (A) 8.5 %; Neutrophils # (A) 3.24 X 10*3/uL (1.80-7.70); Neutrophils % (A) 63.7 %; Platelet Count 120 X 10*3/uL (140-440); RBC 3.64 X 10*6/uL (4.10-5.20); RDW 14.9 % (11.5-14.5); WBC 5.08 X 10*3/uL (4.50-10.00)
[2021-02-28 07:25] LABS: Protein, Total 6.6 g/dL (6.2-8.2)
[2021-02-28 07:39] LABS: % Iron Saturation 38.53 (12.00-45.00); African American GFR (CKD) 122.3 (60.0-200.0); Albumin 4.4 g/dL (3.8-4.9); Anion Gap 16.3 mmol/L (4.00-12.00); Blood Urea Nitrogen 9.6 mg/dL (9.0-27.0); Calcium 9.8 mg/dL (8.7-10.3); Carbon Dioxide 25.7 mmol/L (21.6-31.8); Globulin 2.2 g/dL (1.6-3.3); Non-African American GFR(CKD) 105.5 (60.0-200.0); Potassium 3.6 mmol/L (3.5-5.5); Total Bilirubin 1.5 mg/dL (0.30-1.20); Total Protein 6.6 g/dL (6.2-8.2)
[2021-02-28 07:47] LABS: Hepatitis B Surface Antigen Nonreactive (Nonreactive)
[2021-02-28 08:00] LABS: Ceruloplasmin 11.1 mg/dL (20.0-60.0)
== END | disposition home or self-care (01) ==
LOC: LABWHC1 16:00
PROVIDERS: ATTEND Internal Medicine Gastroenterology
DX: R94.5 Abnormal results of liver function studies (principal)
CPT/HCPCS: 36415; 80053; 82103; 82390; 82728; 83516; 83540; 83550; 84165; 85025; 86038; 86704; 87340

== ENCOUNTER → 2021-05-02 | Outpatient (CLI) | payer MEDICARE | END | disposition home or self-care (01) | LOC: LABWHC1 09:40 | PROVIDERS: ATTEND Internal Medicine Gastroenterology | DX: R94.5 Abnormal results of liver function studies (principal) ==

== ENCOUNTER → 2021-09-17 | Outpatient (CLI) | payer MEDICARE ==
[2021-09-18 01:09] LABS: Basophils # (A) 0.04 X 10*3/uL (0.00-0.10); Basophils % (A) 0.7 %; Eosinophils # (A) 0.05 X 10*3/uL (0.04-0.35); Eosinophils % (A) 0.9 %; HCT 38.7 % (37.2-46.3); HGB 12.6 g/dL (12.0-15.0); Immature Grans, Automated 0.2 %; Lymphocytes # (A) 1.85 X 10*3/uL (0.90-5.00); Lymphocytes % (A) 32.6 %; MCH 33.2 pg (27.0-32.0); MCHC 32.6 g/dL (32.0-37.0); MCV 101.8 fL (80.0-97.0); Mean Platelet Volume 10.4 fL (9.5-12.2); Monocytes # (A) 0.58 X 10*3/uL (0.20-1.00); Monocytes % (A) 10.2 %; NRBC Per 100 WBC 0 /100 WBCS (0.0-0.0); Neutrophils # (A) 3.14 X 10*3/uL (1.80-7.70); Neutrophils % (A) 55.4 %; Platelet Count 180 X 10*3/uL (140-440); RDW 13.4 % (11.5-14.5); WBC 5.67 X 10*3/uL (4.50-10.00)
[2021-09-18 01:14] LABS: African American GFR (CKD) 122.8 (60.0-200.0); Albumin 4.5 g/dL (3.8-4.9); Albumin/Globulin Ratio 1.75 (1.60-3.17); Anion Gap 9.6 mmol/L (10.00-18.00); BUN/Creat Ratio 19.73 Ratio (12.00-20.00); Blood Urea Nitrogen 11.7 mg/dL (9.0-27.0); Calcium 9.6 mg/dL (8.7-10.3); Carbon Dioxide 29.1 mmol/L (20.0-27.5); Globulin 2.6 g/dL (1.6-3.3); Potassium 3.9 mmol/L (3.5-5.5); Total Bilirubin 1.2 mg/dL (0.30-1.20); Total Protein 7.1 g/dL (6.2-8.2)
== END | disposition home or self-care (01) ==
LOC: LABWHC1 15:41
PROVIDERS: ATTEND Internal Medicine Gastroenterology
DX: R94.5 Abnormal results of liver function studies (principal)
CPT/HCPCS: 36415; 80053; 85025

== ENCOUNTER → 2022-03-12 | Outpatient (CLI) | payer MEDICARE ==
[2022-03-12 18:38] LABS: Basophils # (A) 0.03 X 10*3/uL (0.00-0.10); Basophils % (A) 0.6 %; Eosinophils # (A) 0.04 X 10*3/uL (0.04-0.35); Eosinophils % (A) 0.8 %; HCT 37.8 % (37.2-46.3); Immature Grans, Automated 0.2 %; Lymphocytes # (A) 1.46 X 10*3/uL (0.90-5.00); Lymphocytes % (A) 29.8 %; MCH 33.6 pg (27.0-32.0); MCHC 34.4 g/dL (32.0-37.0); MCV 97.7 fL (80.0-97.0); Mean Platelet Volume 9.6 fL (9.5-12.2); Monocytes # (A) 0.53 X 10*3/uL (0.20-1.00); Monocytes % (A) 10.8 %; NRBC Per 100 WBC 0 /100 WBCS (0.0-0.0); Neutrophils # (A) 2.83 X 10*3/uL (1.80-7.70); Neutrophils % (A) 57.8 %; Platelet Count 108 X 10*3/uL (140-440); RBC 3.87 X 10*6/uL (4.10-5.20); RDW 14.6 % (11.5-14.5)
[2022-03-12 20:14] LABS: African American GFR (CKD) 98.8 (60.0-200.0); Albumin 4.5 g/dL (3.8-4.9); Anion Gap 11.1 mmol/L (10.00-18.00); BUN/Creat Ratio 17.21 Ratio (12.00-20.00); Blood Urea Nitrogen 13.7 mg/dL (9.0-27.0); Calcium 9.4 mg/dL (8.7-10.3); Carbon Dioxide 26.7 mmol/L (20.0-27.5); Globulin 2.2 g/dL (1.6-3.3); Non-African American GFR(CKD) 85.3 (60.0-200.0); Potassium 3.6 mmol/L (3.5-5.5); Total Bilirubin 1.5 mg/dL (0.30-1.20); Total Protein 6.7 g/dL (6.2-8.2)
== END | disposition home or self-care (01) ==
LOC: LABWHC1 13:14
PROVIDERS: ATTEND Internal Medicine Gastroenterology
DX: R94.5 Abnormal results of liver function studies (principal)
CPT/HCPCS: 36415; 80053; 85025

== ENCOUNTER → 2023-03-16 | Outpatient (CLI) | payer MEDICARE ==
--- NOTE | 2023-03-17 13:08 | MR ---
EXAMINATION TYPE: MR abdomen wo con DATE OF EXAM: 03/16/2023 5:43 PM CLINICAL INDICATION:Female, 52 years old with history of R63.4 abnormal weight loss; rNausea and Abno rmal weight loss, Abnormal U/S of liver and pancreas COMPARISON: Ultrasound 01/26/2023 TECHNIQUE: Multiplanar multi-sequence imaging was performed without contrast. IV Contrast: cc, no contrast was used. FINDINGS: LOWER CHEST: No gross irregularity. ABDOMEN Liver: No evidence for cirrhosis. Diffuse signal dropout on chemical shift of phase imaging. Gallbladder and Bile ducts: The gallbladder appears surgically absent. Physiologic dilation of the ex trahepatic bladder system. The common bile duct measures up to 7 mm common hepatic duct measures up t o 9 mm. Pancreas: No ductal dilation. No evidence for solid mass. Finding on prior ultrasound. Correlate with possibly bowel. Pancreatic parenchyma on all sequences has a relatively homogenous appearance on non contrast imaging. Spleen: Normal for size. Adrenal glands: Unremarkable. Kidneys: No evidence for obstructive uropathy. No suspicious renal masses. There is a right T1 intrin sic lesion measuring 6 mm. Stomach and Bowel: No evidence for bowel wall thickening or evidence for obstruction.. Peritoneum: No evidence of pneumoperitoneum or free fluid. Vasculature: No aortic aneurysm. Musculoskeletal: The osseous structures appear intact. Lymph Nodes: No gross evidence for lymphadenopathy. Abdominal wall: Unremarkable. IMPRESSION: 1. No evidence for mass in the liver or pancreas. Evaluation limited without IV contrast. Finding on prior likely secondary to technique could represent another adjacent anatomic structures such as bow el or stomach. 2. Diffuse hepatic steatosis. Hemorrhagic/proteinaceous right subcentimeter cyst measuring 6 cm.
== END | disposition home or self-care (01) ==
LOC: RADMRIMAIN 16:43
PROVIDERS: ATTEND Internal Medicine Gastroenterology
DX: K76.0 Fatty (change of) liver, not elsewhere classified (principal); R63.4 Abnormal weight loss
CPT/HCPCS: 74181

== ENCOUNTER → 2023-12-02 | Outpatient (CLI) | payer MEDICARE ==
[2023-12-02 15:08] LABS: Basophils # (A) 0.07 X 10*3/uL (0.00-0.10); Basophils % (A) 1.2 %; Eosinophils # (A) 0.09 X 10*3/uL (0.04-0.35); Eosinophils % (A) 1.5 %; HCT 41.6 % (37.2-46.3); HGB 13.4 g/dL (12.0-15.0); Lymphocytes # (A) 2.04 X 10*3/uL (0.90-5.00); Lymphocytes % (A) 34.3 %; MCH 33.4 pg (27.0-32.0); MCHC 32.2 g/dL (32.0-37.0); MCV 103.7 FL (80.0-97.0); Mean Platelet Volume 10.3 FL (9.5-12.2); Monocytes # (A) 0.65 X 10*3/uL (0.20-1.00); Monocytes % (A) 10.9 %; NRBC Per 100 WBC 0 X 10*3/uL (0.00-0.01); Neutrophils # (A) 3.08 X 10*3/uL (1.80-7.70); Neutrophils % (A) 51.8 %; Platelet Count 389 X 10*3/uL (140-440); RBC 4.01 X 10*6/uL (4.10-5.20); RDW 16.5 % (11.5-14.5); WBC 5.95 X 10*3/uL (4.50-10.00)
[2023-12-02 15:48] LABS: ALT 144 U/L (8-44); AST 114 U/L (13-35); Albumin 4.2 g/dL (3.8-4.9); Albumin/Globulin Ratio 1.83 Ratio (1.60-3.17); Alkaline Phosphatase 63 U/L (41-126); Blood Urea Nitrogen 7.3 mg/dL (9.0-27.0); Calcium 9.5 mg/dL (8.7-10.3); Carbon Dioxide 24.8 mmol/L (21.6-31.8); Chloride 103 mmol/L (96-109); Globulin 2.3 g/dL (1.6-3.3); Glucose 98 mg/dL (70-110); Potassium 3.9 mmol/L (3.5-5.5); Sodium 141 mmol/L (135-145); Total Bilirubin 0.8 mg/dL (0.3-1.2); Total Protein 6.5 g/dL (6.2-8.2)
--- NOTE | 2023-12-02 23:10 | US ---
EXAMINATION TYPE: US liver DATE OF EXAM: 12/02/2023 COMPARISON: Multiple, most recent US 01/26/2023 MRI 03/16/2023 CLINICAL INDICATION: Female, 53 years old with history of K74.60 CIRRHOSIS OF LIVER; Patient denies a ny signs symptoms or relevant history TECHNIQUE: Multiple sonographic images of the right upper quadrant are obtained. FINDINGS: EXAM MEASUREMENTS: Liver Length: 12.7 cm Gallbladder Wall: Surgically absent cm CBD: 1.0 cm Right Kidney: 10.8 x 5.2 x 5.8 cm ONLINE MERCHANDISING SPECIALIST NOTES: Pancreas: wnl Liver: wnl Gallbladder: Surgically absent Evidence for sonographic Dailey's sign: No CBD: wnl Right Kidney: wnl IMPRESSION: 1. Unremarkable right upper quadrant ultrasound
== END | disposition home or self-care (01) ==
LOC: RADUSWWP 10:21
PROVIDERS: ATTEND Internal Medicine Gastroenterology
DX: K74.60 Unspecified cirrhosis of liver (principal)
CPT/HCPCS: 76705; 80053; 82105; 85025

== ENCOUNTER → 2023-12-02 | Outpatient (CLI) | payer MEDICARE ==
--- NOTE | 2023-12-05 16:29 | BD ---
EXAMINATION TYPE: Axial Bone Density DATE OF EXAM: 12/02/2023 CLINICAL HISTORY: 53 years old Female. ICD-10 CODE: Z78.0 ASYMPTOMATIC MENOPAUSAL STATE Height: 62in Weight: 115lb FRAX RISK QUESTIONS: Secondary Osteoporosis: RISK FACTORS HISTORY OF: MEDICATIONS: EXAM MEASUREMENTS: Bone mineral densitometry was performed using the [employer] System. Bone mineral density as measured about the Lumbar spine is: ----- L1-L4(G/cm2): 1.067 T Score Values are as follows: ----- L1: -1.2 ----- L2: -0.9 ----- L3: -0.8 ----- L4: -1.1 ----- L1-L4: -0.9 Z Score Values are as follows: ----- L1: 0.0 ----- L2: 0.3 ----- L3: 0.4 ----- L4: 0.0 ----- L1-L4: 0.2 Bone mineral density has: Decreased -6.4% since study of: 03-07-20 Bone mineral density about the R hip (g/cm2): 0.906 Bone mineral density about the L hip (g/cm2): 0.903 T Score values are as follows: -----R Neck: -1.5 -----L Neck: -1.7 -----R Total: -0.8 -----L Total: -0.8 Z Score values are as follows: -----R Neck: -0.2 -----L Neck: -0.4 -----R Total: 0.1 -----L Total: 0.1 Bone mineral density has: Decreased -5.0% since study of: 03-07-20 FRAX%s: The graph provided illustrates a 6% chance for a major osteoporotic fx and a 0.6% chance for the hips probability for fx in 10 years time. IMPRESSION: Osteopenia (T Score between -2.5 and -1). There is slightly increased risk of fracture and the patient may be considered for treatment. Re-Screen 2-5 years. NOTE: T-SCORE=SD OF THE YOUNG ADULT MEAN.
--- NOTE | 2023-12-09 21:57 | MM ---
Reason for Exam: Screening (asymptomatic). Last mammogram was performed 4 year(s) and 5 month(s) ago. Patient History: Menarche at age 12. First Full-Term at age 20. Postmenopausal. Patient has history of breast feeding. Risk Values: Joelle 5 year model risk: 1.0%. NCI Lifetime model risk: 7.5%. Prior Study Comparison: 01/31/2013 Bilateral Screening Mammogram, [facility]. 04/09/2017 Bilateral Screening Mammogram, [facility]. 06/27/2019 Bilateral Diagnostic Mammogram, [facility]. Tissue Density: The breasts are extremely dense, which lowers the sensitivity of mammography. Findings: Analyzed By CAD. Benign bilateral vascular calcifications. There is no suspicious group of microcalcifications or new suspicious mass in either breast. Overall Assessment: Benign, BI-RAD 2 Management: Screening Mammogram of both breasts in 1 year. Given the patient's extremely dense breast tissue, consideration can be given to supplement her screening with breast ultrasound or MRI. Patient should continue monthly self-breast exams. A clinical breast exam by your physician is recommended on an annual basis. This exam should not preclude additional follow-up of suspicious palpable abnormalities. Note on Joelle scores and lifetime risk: 1. A Joelle score greater than 3% is considered moderate risk. If this is the case, consider specialist referral to assess eligibility for a risk reducing agent. 2. If overall lifetime risk for the development of breast cancer is 20% or higher, the patient may qualify for future screening with alternating mammogram and breast MRI. Electronically signed and approved by: Heather Chiu M.D. Radiologist
== END | disposition home or self-care (01) ==
LOC: RADMAMWWP 10:23
PROVIDERS: ATTEND Family Medicine
DX: Z12.31 Encounter for screening mammogram for malignant neoplasm of breast (principal); M85.89 Other specified disorders of bone density and structure, multiple sites; R92.343 Mammographic extreme density, bilateral breasts; Z78.0 Asymptomatic menopausal state
CPT/HCPCS: 77063; 77067; 77080

== ENCOUNTER 2023-12-22 10:20 | Day surgery (SDC) | payer MEDICARE ==
[~2023-12-22 10:20] MED LIST changes: -LACTATED RINGERS 1,000 ML IV SCH; +LIDOCAINE 1% (10MG/ML) FOR IV START INTRADERMA PRN; -MIDAZOLAM 2 MG/2 ML VIAL IV PRN; -ONDANSETRON 4 MG/2 ML VIAL IVP PRN; -fentaNYL (PF) 50 MCG/ML 2 ML AMP IV PRN; -fentaNYL (PF) 50 MCG/ML 2 ML AMP IVP PRN
[2023-12-22] MEDS: IV FLUID CONTINUATION 1,000 ML IV ONE (10:58)
[2023-12-22 11:05] VITALS: RESP 16; TEMP 98.9
[2023-12-22] MEDS: LACTATED RINGERS 1,000 ML IV SCH (11:12)
[2023-12-22] MEDS ORDERED: KETAMINE HCL IN 0.9 % NACL 50 MG/5 ML SYRINGE ONE (11:44)
[2023-12-22] MEDS ORDERED: PROPOFOL 10 MG/ML 20 ML VIAL IV ONE (11:44)
[2023-12-22] MEDS ORDERED: MIDAZOLAM 2 MG/2 ML VIAL ONE (11:44)
[2023-12-22] MEDS ORDERED: LIDOCAINE 1% INJ 10MG/ML (20 ML MDV) ONE (11:44)
[2023-12-22] MEDS ORDERED: fentaNYL (PF) 50 MCG/ML 2 ML AMP ONE (11:44)
--- NOTE | 2023-12-22 11:56 | P.PCN ---
Date of Procedure: 12/22/23 Procedure(s) Performed: BRIEF HISTORY: Patient is a 53-year-old, pleasant, white female scheduled for an upper endoscopy as a part of screening for esophageal varices. History of liver cirrhosis diagnosed 2 years ago.. PROCEDURE PERFORMED: Esophagogastroduodenoscopy. With biopsy PREOPERATIVE DIAGNOSIS: History of liver cirrhosis/screening for esophageal varices. IV sedation per anesthesia. PROCEDURE: After informed consent was obtained, the patient was brought into the endoscopy unit. IV sedation was administered by Anesthesia under continuous monitoring. Initially the Olympus GIF-140 video endoscope was inserted into the mouth. Esophagus intubated without any difficulty. It was gradually advanced into the stomach and duodenum and carefully examined. The bulb and the second part of the duodenum appeared normal. The scope at this time was withdrawn to the stomach, adequately insufflated with air, and upon careful examination, mucosa of the antrum, body, gastritis and biopsies were done from this area mucosa of the cardia and the fundus appeared normal. No evidence of gastric varices the scope was then withdrawn into the esophagus. The GE junction was located at 39 cm from the incisors. The esophagus appeared normal. There were no erosions or ulcerations seen. No evidence of esophageal varices and the patient tolerated the procedure well. IMPRESSION: 1. Mild antral gastritis. 2. No evidence of gastric or esophageal varices. RECOMMENDATIONS: The findings of this examination were discussed with the patient as well as her family. She was advised to follow-up with the biopsy results. Recommended repeat upper endoscopy in 3 years to screen for esophageal varices.
[2023-12-22 12:22] VITALS: BP 144/92; PULSE 96
[2023-12-22] MEDS: ONDANSETRON 4 MG/2 ML VIAL IVP ONE (12:28)
== END 2023-12-22 12:48 | disposition home or self-care (01) ==
LOC: ORWHC2ENDO 10:20
PROVIDERS: ATTEND Internal Medicine Gastroenterology
DX: K29.50 Unspecified chronic gastritis without bleeding (principal); K74.60 Unspecified cirrhosis of liver; K21.9 Gastro-esophageal reflux disease without esophagitis; M19.90 Unspecified osteoarthritis, unspecified site; Z86.73 Personal history of transient ischemic attack (TIA), and cerebral infarction without residual deficits; Z88.1 Allergy status to other antibiotic agents; Z88.8 Allergy status to other drugs, medicaments and biological substances; Z79.1 Long term (current) use of non-steroidal anti-inflammatories (NSAID); Z90.49 Acquired absence of other specified parts of digestive tract
CPT/HCPCS: 88305; 43239; J2250; J2405; J2001; J3010; J2704

== ENCOUNTER → 2024-12-01 | Outpatient (CLI) | payer MEDICARE ==
--- NOTE | 2024-12-01 08:39 | US ---
EXAMINATION TYPE: US liver DATE OF EXAM: 12/01/2024 COMPARISON: Ultrasound liver 12/02/2023, 01/26/2023, 02/20/2021, MR abdomen 03/16/2023 CLINICAL INDICATION: Female, 54 years old with history of K74.60 UNSPEC CIRRHOSIS OF THE LIVER; Patie nt denies any signs, symptoms, or relevant history TECHNIQUE: Grayscale and color Doppler imaging of the right upper quadrant was performed. FINDINGS: EXAM MEASUREMENTS: Liver Length: 14.4 cm Gallbladder Wall: Surgically absent cm CBD: 0.8 cm Right Kidney: 11.2 x 5.1 x 4.9 cm LIBRARY SUPERVISOR NOTES: Pancreas: Limited visualization Liver: Increased attenuation, decreased visualization of vessels suggestive of fatty infiltrate Gallbladder: Surgically absent CBD: Dilated Right Kidney: wnl Limited visualization of the pancreas due to overlying bowel gas. Diffusely increased echogenicity of the liver without focal lesion identified. No definite surface no dularity identified. Gallbladder is surgically absent. Common bile duct is dilated but within normal limits for cholecystectomy. Right kidney demonstrates no hydronephrosis, shadowing calculus or solid mass. IMPRESSION: 1. Hepatic steatosis without overt cirrhotic morphology. No focal lesion identified. Consider furthe r evaluation with MR if there is continued clinical concern. 2. Post cholecystectomy changes. [facility], , 12/01/2024 8:37 AM
== END | disposition home or self-care (01) ==
LOC: RADUSWWP 07:57
PROVIDERS: ATTEND Internal Medicine Gastroenterology
DX: K76.0 Fatty (change of) liver, not elsewhere classified (principal); K74.60 Unspecified cirrhosis of liver; Z90.49 Acquired absence of other specified parts of digestive tract
CPT/HCPCS: 76705